=== PATIENT | female | born 1985 | race Caucasian/White ===

== ENCOUNTER 2016-07-05 19:00 | Emergency (ER) | payer OTHER ==
--- NOTE | 2016-07-05 22:14 | ER Document Report ---
ED General - General Chief Complaint: Cough Stated Complaint: COUGH Mode of Arrival: Ambulatory Information source: Patient Notes: Patient is a 31 yo FM who presents with cough, nasal congestion, and ear pain for the past 2 weeks. She states she has had fever but has not taken her temperature and chills. She has tried OTC medications without relief. Denies wheezing, nausea, vomiting or diarrhea. She is a smoker. TRAVEL OUTSIDE OF THE [place] IN LAST 30 DAYS: No - Related Data Allergies/Adverse Reactions: No Known Allergies Allergy (Unverified 07/05/16 19:10) Past Medical History - General Information source: Patient - Social History Smoking Status: Current Every Day Smoker Chew tobacco use (# tins/day): No Frequency of alcohol use: None Drug Abuse: None Family History: Reviewed & Not Pertinent Patient has suicidal ideation: No Patient has homicidal ideation: No Review of Systems - Review of Systems Constitutional: See HPI Respiratory: See HPI Physical Exam - Vital signs Vitals: Temp Pulse Resp BP Pulse Ox 97.6 F 109 H 20 140/91 H 100 07/05/16 19:10 07/05/16 19:10 07/05/16 19:10 07/05/16 19:10 07/05/16 19:10 - Notes Notes: PHYSICAL EXAM: CONSTITUTIONAL: Alert and oriented, well-appearing and in no acute distress. HENT: Normocephalic, atraumatic. Ear canals erythematous but no foreign body, TMs pearly javed with good bony landmarks. Nares clear without erythema, septal hematoma or deviation, airway patent. Oropharynx erythematous without tonsilar exudate or malocclusion. Trachea midline. Uvula midline. Moist mucous membranes. EYES: Pupils equal round and reactive to light, EOM intact. Sclera anicteric, conjunctiva are normal. No entrapment. NECK: supple without lymphadenopathy. HEART: Regular rate and rhythm without murmurs. LUNGS: CTAB and equal. No wheezes, rales or rhonchi. SKIN: Warm and dry. Normal turgor. No rashes or lesions noted. Course - Re-evaluation Re-evalutation: 07/05/16 22:24 Patient seen and examined. Non-toxic in appearance, Mildly tachycardic vital signs from triage but WNL on exam. Appears comfortable, no respiratory distress. Speaking in full sentences without difficulty. Lungs CTAB. I feel this is viral in etiology but due to duration of symptoms will treat empirically with abx. At this time, I do not feel imaging is warranted due to lungs CTAB. Discharged home in stable condition, supportive care treatments discussed, follow-up with PMD. - Vital Signs Vital signs: Temp Pulse Resp BP Pulse Ox 97.6 F 109 H 20 140/91 H 100 07/05/16 19:10 07/05/16 19:10 07/05/16 19:10 07/05/16 19:10 07/05/16 19:10 Discharge - Discharge Clinical Impression: Bronchitis Upper respiratory infection Qualifiers: URI type: acute nasopharyngitis (common cold) Qualified Code(s): J00 - Acute nasopharyngitis [common cold] Condition: Stable Disposition: HOME, SELF-CARE Instructions: Upper Respiratory Illness ([facility]), Viral Syndrome ([facility]) Additional Instructions: BRONCHITIS: You have acute bronchitis. This disease is an infection or inflammation of the air passageways in your lungs. Symptoms usually include cough, low grade fever, shortness of breath, and wheezing. The cough usually persists for a couple of weeks. Most cases of bronchitis get better without antibiotics. We prescribe antibiotics when we believe bacteria are damaging your airways, or if there's high risk the bronchitis will worsen into pneumonia. Increase your fluid intake. A cool mist humidifier may make your lungs more comfortable. An expectorant (cough medicine that loosens phlegm) can help. If you smoke, STOP!!! Recovery from bronchitis can be somewhat slow, but you should see improvement within a day or two. Repeated episodes of bronchitis may result in lung damage -- for example, chronic bronchitis, recurrent pneumonias, or emphysema. Call the doctor if you develop increasing fever, shortness of breath, chest pain, bloody sputum, or otherwise worsen. If you have not improved at all after several days, contact the physician. BRONCHITIS WITH BRONCHOSPASM (WHEEZING): You have bronchitis with bronchospasm (wheezing). Sometimes people develop wheezing with a chest cold. This occurs either because of an underlying tendency toward asthma or because the virus itself irritates the bronchial tubes. This irritation causes cough, shortness of breath, and wheezing. Emergency treatment of bronchospasm may include adrenaline shots or bronchodilator aerosol. You may feel lightheaded and have a rapid pulse for an hour or two. Rest and get plenty of fluids. At home, we'll treat you with a bronchodilator inhaler. Corticosteroids may be required for some patients. Until you recover, avoid chemical fumes, dusts, pollens, and exercising in very cold or dry air. If you smoke, stop now! Most cases of bronchitis get better without antibiotics. We prescribe antibiotics when we believe bacteria are damaging your airways, or if there's high risk the bronchitis will worsen into pneumonia. Increase your fluid intake. A cool mist humidifier may make your lungs more comfortable. An expectorant (cough medicine that loosens phlegm) can help. Repeated episodes of bronchitis and bronchospasm may result in lung damage -- for example, chronic bronchitis, recurrent pneumonias, or emphysema. If you develop a fever, increased wheezing, chest pain, or severe shortness of breath, you should contact the doctor immediately. COUGH-SUPPRESSANT & EXPECTORANT MEDICATION: You are to use a cough medication as needed for relief of symptoms. This medicine is a combination of an expectorant (to make the mucous thinner and more easily "coughed up") and a cough suppressant (to reduce the frequency of coughing). The cough-suppressant medicine is related to narcotics. You may experience mild nausea and sleepiness. Some patients who are very sensitive to narcotics may have stomach pain from this medicine. Taking the medicine with food reduces these side effects. Do not drive or work with machinery until you know how this medicine affects you. The expectorant should have no side effects. Iodine-containing expectorants (such as organidin) should not be taken by persons with active thyroid disease unless approved by your doctor. Call the doctor if you develop shortness of breath, hives, rash, itching, lightheadedness, or severe nausea and vomiting. INHALED BRONCHODILATORS: You have received a treatment of and/or prescription for an inhaled bronchodilator -- a medication which stimulates the airways in the lung to dilate. This improves the flow of air in asthma, bronchitis, and emphysema. These medicines have some similarity to adrenaline, and can cause similar side effects: shakiness, racing heart, and a sense of nervousness. These side effects decrease with time. Contact your doctor if these side effects are severe. Do not over-use the medicine. Too-frequent use of the inhaler may make it ineffective. Call your doctor if the inhaler is not controlling your symptoms at the prescribed doses. STEROID MEDICATION: You have been given an injection of or oral medicine of the cortisone/ steroid class. This medication is used to control inflammation or allergy. Manfred t is usually only given for a short period of time, until the acute process subsides. There are usually no side effects from short-term use of cortisone-like medications. Some persons feel an increased sense of well-being and are not sleepy at bedtime. Long-term use of cortisone medications is best avoided, unless required for a severe condition. If your condition does not remit, or relapses after the course of corticosteroid medication, you should consult your physician. ANTIBIOTIC THERAPY: You have been given an antibiotic prescription. It's important that you take all the medication, unless instructed otherwise by your physician. Failure to complete the entire course can result in relapse of your condition. Common side effects of antibiotics include nausea, intestinal cramping, or diarrhea. Women may develop vaginal yeast infections, and babies can get yeast (thrush) in the mouth following the use of antibiotics. Contact your physician if you develop significant side effects from this medication. Allergy to this antibiotic can result in hives, wheezing, faintness, or itching. If symptoms of allergy occur, stop the medication and call your doctor. AZITHROMYCIN: Azithromycin (Zithromax) is a broad spectrum antibiotic in the same class as erythromycin. It can treat a variety of bacterial infections, but is most frequently used for respiratory infections. Azithromycin is extremely long-lasting. It accumulates in body tissues and continues to kill bacteria for many days. In order to improve absorption, Azithromycin should be taken at least one hour before or two hours after a meal. It does not have the same strong tendency to upset the stomach as erythromycin and is usually very well tolerated. Patients who have had a rash or other true allergic reactions to erythromycin should not take this medication. Call if you develop gastrointestinal distress, severe diarrhea, rash, hives, itching, or shortness of breath. USE OF ACETAMINOPHEN (Tylenol): Acetaminophen may be taken for pain relief or fever control. It's much safer than aspirin, offering a wider range of "safe" dosages. It is safe during . Some brand names are Tylenol, Panadol, Datril, Anacin 3, Tempra, and Liquiprin. Acetaminophen can be repeated every four hours. The following are maximum recommended dosages: >89 pounds or adults 650 mg to 900 mg Acetaminophen can be repeated every four hours. Maximum dose not to exceed 4000 mg a day. SMOKING: If you smoke, you should stop smoking. The tar and chemicals in cigarette smoke are harmful. Smoking has been shown to cause: emphysema chronic bronchitis lung cancer mouth and throat cancer stomach and pancreas cancer premature aging defects In addition, smoking increases ear and lung infections in children of smokers. FOLLOW-UP CARE: If you have been referred to a physician for follow-up care, call the physician s office for an appointment as you were instructed or within the next two days. If you experience worsening or a significant change in your symptoms, notify the physician immediately or return to the Emergency Department at any time for re-evaluation. Prescriptions: Benzonatate [Tessalon Perle 100 mg Capsule] 100 mg PO Q8HP PRN #20 cap PRN Reason: Albuterol Sulfate [Proair HFA Inhalation Aerosol 8.5 gm MDI] 2 puff IH Q4H PRN # 1 mdi PRN Reason: Azithromycin [Zithromax 250 mg Tablet] 250 mg PO ASDIR PRN #6 tablet PRN Reason: Prednisone [Deltasone 20 mg Tablet] 3 tab PO DAILY 5 Days
[2016-07-06 01:03] VITALS: BP 131/74
== END 2016-07-05 23:50 | disposition home or self-care (01) ==
LOC: ER 19:00
DX: J40 Bronchitis, not specified as acute or chronic (principal); J00 Acute nasopharyngitis [common cold]; R05 Cough; R09.81 Nasal congestion; H92.09 Otalgia, unspecified ear; F17.210 Nicotine dependence, cigarettes, uncomplicated
CPT/HCPCS: 99283

== ENCOUNTER 2016-12-13 22:03 | Inpatient (IN) | payer OTHER ==
[2016-12-13] MEDS ORDERED: NORMAL SALINE 250 ML IV PRN ×2 (22:06)
[2016-12-13] MEDS ORDERED: ONDANSETRON HCL INJ/PF 4 MG/2 ML SDV IV PRN (22:06)
[2016-12-13 22:36] LABS: ABSOLUTE BASOPHILS # (AUTO) 0.1 10^3/uL (0.0-0.2); ABSOLUTE EOSINOPHILS # (AUTO) 0.1 10^3/uL (0.0-0.6); ABSOLUTE LYMPHOCYTES (AUTO) 2.3 10^3/uL (0.5-4.7); ABSOLUTE MONOCYTES (AUTO) 0.7 10^3/uL (0.1-1.4); ABSOLUTE NEUT (AUTO) 7.5 10^3/uL (1.7-8.2); BASOPHILS % (AUTO) 0.6 % (0-2); EOSINOPHILS % (AUTO) 1.1 % (0-6); HEMATOCRIT 18.3 % (36.0-47.0); HGB HCT DIFFERENCE -2.4; LYMPHOCYTES % (AUTO) 21.2 % (13-45); MEAN CORPUSCULAR HEMOGLOBIN 18.5 pg (27.0-33.4); MONOCYTES % (AUTO) 6.4 % (3-13); RED BLOOD COUNT 2.86 10^6/uL (3.72-5.28); RED CELL DISTRIBUTION WIDTH 19.6 % (11.5-14.0); SEGMENTED NEUTROPHILS % (AUTO) 70.7 % (42-78); WHITE BLOOD COUNT 10.6 10^3/uL (4.0-10.5)
[2016-12-13] MEDS ORDERED: IRON POLYSACCHARIDES COMPLEX 150 MG CAPSULE PO ONE (22:45)
[2016-12-13 22:57] LABS: ANISOCYTOSIS 2+; MICROCYTOSIS 3+; OVALOCYTES SLIGHT; POIKILOCYTOSIS SLIGHT; POLYCHROMASIA SLIGHT; ROULEAUX SLIGHT
[2016-12-13 22:58] LABS: MEAN CORPUSCULAR VOLUME 64 fl (80-97)
[2016-12-13 23:01] LABS: ANION GAP 13 (5-19); BLOOD UREA NITROGEN 12 mg/dL (7-20); CALCIUM 8.8 mg/dL (8.4-10.2); CARBON DIOXIDE 24 mmol/L (22-30); CHLORIDE 104 mmol/L (98-107); CREATININE RESULT 0.64 mg/dL (0.52-1.25); GLUCOSE 113 mg/dL (75-110); HEMOGLOBIN 5.3 g/dL (12.0-15.5); POTASSIUM 4.2 mmol/L (3.6-5.0); SODIUM 140.5 mmol/L (137-145)
[2016-12-13 23:39] LABS: FERRITIN 4.02 ng/mL (6.2-137.0)
--- NOTE | 2016-12-13 23:49 | PDOC H&P ---
History of Present Illness Admission Date/PCP: 12/13/16 22:03 Patient complains of: Generalized weakness and fatigue History of Present Illness: MYAA DE LA FUENTE is a 31 year old female with a past medical history of Depression and a remote history of iron deficiency anemia who has been in her usual state of health until approximately a week ago noting excessive fatigue and generalized weakness prompting her to seek evaluation with primary care Dr. Jarvis Urbina of [facility]. She is found to have a hemoglobin of 5 prompting a request for direct admission. She is accepted to the medical floor she admits palpitations no chest pain or shortness of breath denying nausea or vomiting dark or pink urine black stools or diarrhea. She also denies excessive frequency of menses or menorrhagia. She otherwise is well. Past Medical History Cardiac Medical History: Reports: Hypertension - only during Denies: Congestive Heart Failure, Myocardial Infarction Pulmonary Medical History: Denies: Asthma, Bronchitis, Chronic Obstructive Pulmonary Disease (COPD), Pneumonia, Tuberculosis Neurological Medical History: Denies: Seizures Renal/ Medical History: Denies: End Stage Renal Disease GI Medical History: Reports: Gastroesophageal Reflux Disease Denies: Cirrhosis Musculoskeltal Medical History: Denies: Arthritis Psychiatric Medical History: Reports: Depression Denies: Bipolar Disorder Hematology: Reports: Anemia Denies: Bleeding Tendencies Social History Information Source: Patient Lives with: Family Smoking Status: Current Every Day Smoker Cigarettes Packs Per Day: 0.3 Drugs: None - Advance Directive Resuscitation Status: Full Code Family History Family History: Hypertension, Other - No bleeding disorder colon cancer Parental Family History Reviewed: Yes Children Family History Reviewed: Yes Sibling(s) Family History Reviewed.: Yes Medication/Allergy Home Medications: Albuterol Sulfate [Proair HFA Inhalation Aerosol 8.5 gm MDI] 2 puff IH Q4H PRN # 1 mdi 07/05/16 Azithromycin [Zithromax 250 mg Tablet] 250 mg PO ASDIR PRN #6 tablet 07/05/16 Benzonatate [Tessalon Perle 100 mg Capsule] 100 mg PO Q8HP PRN #20 cap 07/05/16 Prednisone [Deltasone 20 mg Tablet] 3 tab PO DAILY 5 Days 07/05/16 Allergies/Adverse Reactions: No Known Allergies Allergy (Unverified 07/05/16 19:10) Review of Systems Constitutional: PRESENT: fatigue, weakness. ABSENT: anorexia, chills, fever(s) , headache(s), night sweats Eyes: ABSENT: visual disturbances Ears: ABSENT: hearing changes Cardiovascular: ABSENT: chest pain, dyspnea on exertion, edema, orthropnea, palpitations Respiratory: ABSENT: cough, hemoptysis Gastrointestinal: ABSENT: abdominal pain, constipation, diarrhea, hematemesis, hematochezia, nausea, vomiting Genitourinary: ABSENT: dysuria, hematuria Musculoskeletal: ABSENT: joint swelling Integumentary: ABSENT: rash, wounds Neurological: ABSENT: abnormal gait, abnormal speech, confusion, dizziness, focal weakness, syncope Psychiatric: ABSENT: anxiety, depression, homidical ideation, suicidal ideation Endocrine: ABSENT: cold intolerance, heat intolerance, polydipsia, polyuria Hematologic/Lymphatic: ABSENT: easy bleeding, easy bruising Physical Exam Vital Signs: Temp Pulse Resp BP Pulse Ox 98.1 F 110 H 17 133/77 H 100 12/13/16 22:23 12/13/16 22:23 12/13/16 22:23 12/13/16 22:23 12/13/16 22:23 Intake & Output 12/12/16 12/13/16 12/14/16 11:59 11:59 11:59 Weight 117.11 kg General appearance: PRESENT: no acute distress, cooperative, morbidly obese, well-developed, well-nourished Head exam: PRESENT: atraumatic, normocephalic Eye exam: PRESENT: conjunctiva pale, EOMI, PERRLA. ABSENT: scleral icterus Ear exam: PRESENT: normal external ear exam Mouth exam: PRESENT: moist, tongue midline Neck exam: ABSENT: carotid bruit, JVD, lymphadenopathy, thyromegaly Respiratory exam: PRESENT: clear to auscultation armand. ABSENT: rales, rhonchi, wheezes Cardiovascular exam: PRESENT: RRR. ABSENT: diastolic murmur, rubs, systolic murmur Pulses: PRESENT: normal dorsalis pedis pul Vascular exam: PRESENT: normal capillary refill GI/Abdominal exam: PRESENT: normal bowel sounds, soft. ABSENT: distended, guarding, mass, organolmegaly, rebound, tenderness Rectal exam: PRESENT: deferred Extremities exam: PRESENT: full ROM. ABSENT: calf tenderness, clubbing, pedal edema Neurological exam: PRESENT: alert Psychiatric exam: PRESENT: appropriate affect, normal mood. ABSENT: homicidal ideation, suicidal ideation Skin exam: PRESENT: dry, intact, warm. ABSENT: cyanosis, rash Results Laboratory Results: 12/13/16 22:25 12/13/16 12/13/16 22:25 22:25 WBC 10.6 H RBC 2.86 L Hgb 5.3 L Hct 18.3 L MCV 64 L MCH 18.5 L MCHC 29.0 L RDW 19.6 H Plt Count 496 H Seg Neutrophils % 70.7 Lymphocytes % 21.2 Monocytes % 6.4 Eosinophils % 1.1 Basophils % 0.6 Absolute Neutrophils 7.5 Absolute Lymphocytes 2.3 Absolute Monocytes 0.7 Absolute Eosinophils 0.1 Absolute Basophils 0.1 Retic Count (auto) 5.64 H Absolute Retic 0.162 H Blood Type O NEGATIVE Antibody Screen NEGATIVE Assessment & Plan - Diagnosis (1) Iron deficiency anemia Is this a current diagnosis for this admission?: YesPlan: By history appears to be somewhat chronic and only now symptomatic. Anemia studies pending the microcytic consistent with history, iron orally ordered 2 units of packed red blood cells ordered follow-up posttransfusion CBC. (2) Morbid obesity with BMI of 40.0-44.9, adult Is this a current diagnosis for this admission?: YesPlan: We will order a TSH and otherwise defer to outpatient management. - Time Time Spent: 30 to 50 Minutes
[2016-12-13 23:59] LABS: APPEARANCE,URINE SLIGHTLY-CLOUDY; BILIRUBIN,URINE NEGATIVE (NEGATIVE); GLUCOSE, URINE NEGATIVE (NEGATIVE); KETONES,URINE NEGATIVE (NEGATIVE); LEUKOCYTE ESTERASE,URINE NEGATIVE (NEGATIVE); NITRITE,URINE NEGATIVE (NEGATIVE); PROTEIN,URINE NEGATIVE (NEGATIVE); URINE SPECIFIC GRAVITY 1.015; UROBILINOGEN,URINE NEGATIVE mg/dL (<2.0)
[2016-12-14 05:01] LABS: ABSOLUTE BASOPHILS # (AUTO) 0.1 10^3/uL (0.0-0.2); ABSOLUTE EOSINOPHILS # (AUTO) 0.2 10^3/uL (0.0-0.6); ABSOLUTE LYMPHOCYTES (AUTO) 2.2 10^3/uL (0.5-4.7); ABSOLUTE MONOCYTES (AUTO) 0.5 10^3/uL (0.1-1.4); ABSOLUTE NEUT (AUTO) 5.8 10^3/uL (1.7-8.2); BASOPHILS % (AUTO) 0.6 % (0-2); EOSINOPHILS % (AUTO) 1.9 % (0-6); HEMATOCRIT 19.4 % (36.0-47.0); HGB HCT DIFFERENCE -2.6; LYMPHOCYTES % (AUTO) 25.1 % (13-45); MEAN CORPUSCULAR HEMOGLOBIN 18.7 pg (27.0-33.4); MEAN CORPUSCULAR HGB CONC 28.8 g/dL (32.0-36.0); MEAN CORPUSCULAR VOLUME 65 fl (80-97); MONOCYTES % (AUTO) 5.9 % (3-13); RED BLOOD COUNT 2.98 10^6/uL (3.72-5.28); RED CELL DISTRIBUTION WIDTH 21.9 % (11.5-14.0); SEGMENTED NEUTROPHILS % (AUTO) 66.5 % (42-78); WHITE BLOOD COUNT 8.7 10^3/uL (4.0-10.5)
[2016-12-14 05:29] LABS: HEMOGLOBIN 5.6 g/dL (12.0-15.5)
[2016-12-14] MEDS ORDERED: HEPARIN SOD (PORCINE) 5,000 UNIT/ML 1 ML SYRINGE SUBCUT SCH (06:00)
[2016-12-14] MEDS: DOCUSATE SODIUM 100 MG CAPSULE PO SCH ×2 (10:43→18:28)
[2016-12-14] MEDS: IRON POLYSACCHARIDES COMPLEX 150 MG CAPSULE PO SCH (10:43)
[2016-12-14] MEDS: ACETAMINOPHEN 325 MG TABLET PO PRN ×2 (10:43→21:00)
[2016-12-14 11:27] LABS: HEMATOCRIT 22.8 % (36.0-47.0); HGB HCT DIFFERENCE -2.1; MEAN CORPUSCULAR HEMOGLOBIN 20.4 pg (27.0-33.4); MEAN CORPUSCULAR HGB CONC 30.3 g/dL (32.0-36.0); MEAN CORPUSCULAR VOLUME 68 fl (80-97); RED BLOOD COUNT 3.38 10^6/uL (3.72-5.28); RED CELL DISTRIBUTION WIDTH 25.1 % (11.5-14.0); WHITE BLOOD COUNT 8.4 10^3/uL (4.0-10.5)
[2016-12-14] MEDS: TRAMADOL HCL 50 MG TABLET PO PRN ×3 (11:54→20:59)
[2016-12-14 12:08] LABS: HEMOGLOBIN 6.9 g/dL (12.0-15.5)
[2016-12-14 12:13] LABS: PATH REVIEW PATHOLOGIST REVIEWED
[2016-12-14] MEDS ORDERED: NORMAL SALINE 250 ML IV PRN ×2 (13:07)
--- NOTE | 2016-12-14 13:33 | PROGRESS NOTE E ---
Progress Note NAME: MAYA DE LA FUENTE : 1985 AGE: 31Y DATE: 12/14/2016 ROOM: 415 SUBJECTIVE: The patient is lying in bed. She states that she still feels quite weak. She is dizzy with a headache. After much discussion with the patient, it appears that she has had ongoing symptoms of reflux and has never undergone endoscopy. The patient also states that she had what sounds to be thrombosed hemorrhoids a couple of months ago, which she did have to have cut. The patient denies any menorrhagia. Her last menstrual period was a week ago, which was only for 4 days and was by no means heavy. The patient does not voice any other concerns at this time. REVIEW OF SYSTEMS: Rest of review of systems negative. MEDICATIONS: Medications have been reviewed. OBJECTIVE: GENERAL: The patient is a 31-year-old female who is awake, alert, and oriented to person, place, time, and situation. She is verbal, conversational, ambulatory, does not appear to be in acute distress. VITAL SIGNS: Temperature is 98.6, pulse 88, respirations 16, blood pressure is 124/64, oxygen saturation is 100% on room air. SKIN: Warm and dry. No rash. She is not diaphoretic. HEENT: Pupils equal, round, and reactive to light and accommodation. Conjunctiva is pink. No JVP. CARDIOVASCULAR SYSTEM: Heart is regular. There is no murmur or rub. CHEST: Clear, symmetrical, unlabored. ABDOMEN: Soft, nontender, nondistended. BACK: No CVA tenderness or sacral edema. EXTREMITIES: No clubbing, cyanosis, edema. PSYCHIATRIC: Appropriate affect, pleasant mood. DIAGNOSTICS: Lab values are as follows: Hematology obtained on 12/14/2016: WBCs are 8.4, hemoglobin is 6.9, hematocrit is 22.8, platelet count is 441,000. Chemistry obtained on 12/13/2016: TSH is 1.48. IMPRESSION AND PLAN: 1. ACUTE BLOOD LOSS ANEMIA. The patient does appear to be iron deficient, but the patient is highly symptomatic. No evidence of overt swapna bleeding; however, the patient has had numerous GI complaints. Will once again transfuse since the patient's hemoglobin is still less than 7 and consult GI given the patient's positive guaiac and follow. 2. DEPRESSION. Will continue the patient's home medications. 3. DVT PROPHYLAXIS. The patient is ambulatory and has actually been up ambulating in the hallway. Will defer pharmacological prophylaxis given the patient's bleeding. DISPOSITION: The patient is a FULL CODE. Pending patient's symptomatology and diagnostic findings, will re-evaluate in the a.m. Time spent on this followup including assessment, plan, physical examination, patient education is 25 minutes. DICTATING PHYSICIAN: ZEYNEP GABRIEL NP [id number] PHY#: [id number] ID: [id number] JOB#: [id number] ACCT: [id number] cc: >
[2016-12-14] MEDS: VENLAFAXINE HCL 75 MG CAP.SR.24H PO SCH (20:59)
[2016-12-14] MEDS ORDERED: BISACODYL 5 MG TABEC PO ONE (21:00)
[2016-12-14 22:21] LABS: HEMOGLOBIN 8.8 g/dL (12.0-15.5); HGB HCT DIFFERENCE -2.6; MEAN CORPUSCULAR HEMOGLOBIN 22.2 pg (27.0-33.4); MEAN CORPUSCULAR HGB CONC 30.3 g/dL (32.0-36.0); RED BLOOD COUNT 3.96 10^6/uL (3.72-5.28); RED CELL DISTRIBUTION WIDTH 28.4 % (11.5-14.0); WHITE BLOOD COUNT 9.1 10^3/uL (4.0-10.5)
[2016-12-14 22:29] LABS: MEAN CORPUSCULAR VOLUME 73 fl (80-97)
[2016-12-15 05:35] LABS: HEMATOCRIT 27.2 % (36.0-47.0); HEMOGLOBIN 8.4 g/dL (12.0-15.5); MEAN CORPUSCULAR HEMOGLOBIN 22.4 pg (27.0-33.4); MEAN CORPUSCULAR VOLUME 72 fl (80-97); RED BLOOD COUNT 3.75 10^6/uL (3.72-5.28); RED CELL DISTRIBUTION WIDTH 28.4 % (11.5-14.0)
[2016-12-15] MEDS ORDERED: PEG 3350/NA SULF,BICARB,CL/KCL 4000 ML PO ONE (07:00)
[2016-12-15] MEDS: IRON POLYSACCHARIDES COMPLEX 150 MG CAPSULE PO SCH (10:17)
[2016-12-15] MEDS: ACETAMINOPHEN 325 MG TABLET PO PRN ×2 (11:06→19:37)
--- NOTE | 2016-12-15 13:44 | PROGRESS NOTE E ---
Progress Note NAME: MAYA DE LA FUENTE : 1985 AGE: 31Y DATE: 12/15/2016 ROOM: 415 SUBJECTIVE: The patient is currently out of bed at the bedside chair. She states she feels better today. The patient states that when prepping for a colonoscopy she had very dark stools overnight. The patient's hemoglobin did improve to 9.8 after 4 units of packed red blood cells. The patient was seen by Dr. Oconnor and is to undergo endoscopy today, and the patient does not voice any other concerns at this time. REVIEW OF SYSTEMS: Rest of review of systems negative. MEDICATIONS: Medications have been reviewed. OBJECTIVE: GENERAL: The patient is a 31-year-old female who is awake, alert. She is oriented to person, place, time, and situation. She is verbal, conversational, ambulatory, does not appear to be in any acute distress. VITAL SIGNS: Temperature is 98.4, pulse 85, respirations 19, blood pressure 141/93, oxygen saturation is 100% on room air. SKIN: Warm and dry. She is not diaphoretic. HEENT: Pupils equal, round, and reactive to light and accommodation. Conjunctiva is pink. No JVP. CARDIOVASCULAR SYSTEM: Heart is regular. There is no murmur or rub. CHEST: Clear, symmetrical, unlabored. ABDOMEN: Soft, nontender, nondistended. BACK: No CVA tenderness or sacral edema. EXTREMITIES: No clubbing, cyanosis, edema. PSYCHIATRIC: Appropriate affect, pleasant mood. DIAGNOSTICS: Lab values are as follows: Hematology obtained on 12/15/2016: WBCs are 8.0, hemoglobin is 10.4, hematocrit is 27.7, platelet count is 430,000. Chemistry obtained on 12/13/2016: TSH is 1.48. obtained on 12/14/2016: Stool for occult blood is positive. IMPRESSION AND PLAN: 1. ACUTE BLOOD LOSS ANEMIA. The patient does appear to be iron deficient. The patient was highly symptomatic. This does appear to have improved after 4 units of packed red blood cells. Currently awaiting endoscopic evaluation. Will follow. 2. DEPRESSION. Will continue the patient's home medication. 3. DVT PROPHYLAXIS. The patient has been ambulatory. Therefore, will defer any pharmacological prophylaxis, but will continue DC hose. DISPOSITION: The patient is a FULL CODE. Pending patient's symptomatology and diagnostic findings, will re-evaluate in the a.m. for possible discharge. Time spent on this followup including assessment, plan, physical examination, patient education is 25 minutes. DICTATING PHYSICIAN: ZEYNEP GABRIEL NP [id number] PHY#: [id number] ID: [id number] JOB#: [id number] ACCT: [id number] cc: > MTDD
[2016-12-15] MEDS ORDERED: NALOXONE HCL INJ/PF 0.4 MG/1 ML SDV ONE (17:20)
[2016-12-15] MEDS ORDERED: FLUMAZENIL INJ 0.5 MG/5 ML VIAL IV ONE (17:21)
[2016-12-15] MEDS ORDERED: EPINEPHRINE INJ 1 MG/10 ML DISP.SYRIN ONE (17:21)
[2016-12-15] MEDS ORDERED: GLUCAGON,HUMAN RECOMB 1 MG INJ ONE (17:21)
[2016-12-15] MEDS: MIDAZOLAM 2 MG/2 ML INJ ONE ×2 (18:20→18:28)
[2016-12-15] MEDS: FENTANYL CITRATE INJ/PF 100 MCG/2 ML AMPUL ONE ×2 (18:22→18:30)
--- NOTE | 2016-12-15 19:03 | PDOC CONSULTATION ---
Consultation Consult Date: 12/14/16 History of Present Illness Admission Date/PCP: 12/14/16 11:19 History of Present Illness: This is a 31-year-old patient was admitted with severe anemia with a hemoglobin of 5. She was sent to the hospital by her PMD. She has been feeling more tired and out of breath over the last few weeks. She has a chronic history of iron deficiency anemia and actually took iron supplements for a few months early in 2015. She has not had any menstrual period for a couple of years. She has a history of hemorrhoids with occasional rectal bleeding. She had a colonoscopy for these about a year ago and did show diverticulosis. Her hemorrhoids has been banded a couple of times. She denies abdominal pain, nausea, vomiting, black stools or weight loss. She does have reflux symptoms including heartburn frequently. She takes [id number] antacid. She has never had an EGD Past Medical History Cardiac Medical History: Reports: Hypertension - only during Denies: Congestive Heart Failure, Myocardial Infarction Pulmonary Medical History: Denies: Asthma, Bronchitis, Chronic Obstructive Pulmonary Disease (COPD), Pneumonia, Tuberculosis Neurological Medical History: Denies: Seizures Renal/ Medical History: Denies: End Stage Renal Disease GI Medical History: Reports: Gastroesophageal Reflux Disease Denies: Cirrhosis GI History Note: Diverticulosis, hemorrhoids Musculoskeltal Medical History: Denies: Arthritis Psychiatric Medical History: Reports: Depression Denies: Bipolar Disorder Hematology: Reports: Anemia Denies: Bleeding Tendencies Past Surgical History Past Surgical History: Colonoscopy January 2016 Past Surgical History: Denies: Hysterectomy Social History Lives with: Family Smoking Status: Current Every Day Smoker Cigarettes Packs Per Day: 0.3 Drugs: None - Advance Directive Resuscitation Status: Full Code Family History Family History: Hypertension, Other - No bleeding disorder colon cancer Parental Family History Reviewed: No Children Family History Reviewed: NA Sibling(s) Family History Reviewed.: NA Medication/Allergy Home Medications: Venlafaxine HCl [Venlafaxine HCl ER] 150 mg PO QHS 12/14/16 Allergies/Adverse Reactions: No Known Allergies Allergy (Unverified 07/05/16 19:10) Review of Systems All systems: reviewed and no additional remarkable complaints except as stated Physical Exam Vital Signs: Temp Pulse Resp BP Pulse Ox 98.6 F 88 14 105/55 L 98 12/15/16 16:00 12/15/16 18:55 12/15/16 18:55 12/15/16 18:55 12/15/16 18:55 Intake & Output 12/14/16 12/15/16 12/16/16 06:59 06:59 06:59 Intake Total 590 1680 480 Output Total 300 Balance 290 1680 480 Weight 117.11 kg 117.11 kg Exam: General: Patient is alert and looks well. She is obese HEENT: There is palor but no jaundice. PERRLA. Oropharynx normal Respiratory: No chest deformity. No respiratory distress. Chest wall palpitation was unremarkable. Breath sounds were normal Cardiovascular: Heart sounds 1 and 2 normal with no murmurs. Abdominal: Not distended. Soft and nontender. Liver and spleen not palpable. No ascites demonstrated. Bowel sounds active. Rectal examination was deferred. Extremities: No edema Neurological: Alert and oriented x4. Grossly nonfocal. Normal speech Skin: No significant rash Psychological: Normal affect Results Laboratory Results: 12/15/16 04:32 12/13/16 22:25 12/13/16 12/14/16 12/15/16 22:25 22:00 04:32 WBC 9.1 8.0 RBC 3.96 3.75 Hgb 8.8 L 8.4 L Hct 29.0 L 27.2 L MCV 73 L D 72 L MCH 22.2 L 22.4 L MCHC 30.3 L 31.0 L RDW 28.4 H 28.4 H Plt Count 410 430 Blood Type O NEGATIVE Antibody Screen NEGATIVE Assessment & Plan - Diagnosis (1) Iron deficiency anemia Is this a current diagnosis for this admission?: YesPlan: The etiology for her iron deficiency anemia is unclear. She only has rectal bleeding once in a while and has not had a menstrual period for many years. She has a history of iron deficiency anemia but has not been on supplement consistently. She will undergo an EGD and colonoscopy. If these are unremarkable the capsule endoscopy of small intestine will be performed as outpatient. She should be on a full dose iron supplement for the next 6-12 months (2) Gastroesophageal reflux disease Is this a current diagnosis for this admission?: YesPlan: EGD will evaluate for esophagitis (3) Rectal bleeding Is this a current diagnosis for this admission?: No (4) Hemorrhoids Is this a current diagnosis for this admission?: No
--- NOTE | 2016-12-15 19:06 | Operative Report ---
Operative Report DATE OF SURGERY: 12/15/16 Operative Report: Pre-op diagnosis: Iron deficiency anemia Post-op diagnosis: 1. Large hiatal hernia. 2. Grade a esophagitis 3. Pancolonic diverticulosis 4. Internal hemorrhoids Surgery: Upper endoscopy biopsy and Colonoscopy Medications: Versed 4mg, Fentanyl 100 mcg IV push Tissue removed: Antral biopsy Procedure: After informed consent obtained from patient, patient's pharynx was sprayed with Hurricane and conscious sedation was achieved. The upper endoscope was then inserted into the esophagus under direct vision and advanced into the stomach and further into the duodenum. Detailed examination of the duodenum, stomach and the esophagus was then performed. A digital rectal examination was performed and this was unremarkable. The colonoscope was inserted into the rectum and advanced to the cecum. The appendiceal orifice and the terminal ileum were both identified. The mucosa was examined into details as the colonoscope was slowly pulled out of the patient. The endoscope was retroflexed in the rectum. Patient tolerated the procedure well. Findings Esophagus: Small erosion with mild stenosis at the GE junction. Z line was at 30 cm with top of the gastric fold at 35-36 cm Stomach: 5-6 mm hiatal hernia Duodenum: Normal Terminal ileum: Normal Cecum: Normal Ascending colon: A few diverticula Transverse colon: A few diverticuli Descending colon: A few diverticula Sigmoid colon: Multiple diverticuli Rectum: Normal except for internal hemorrhoids Plan: Schedule capsule endoscopy as outpatient. Prevacid 20 mg daily OPERATION: .
[2016-12-15] MEDS: TRAMADOL HCL 50 MG TABLET PO PRN (19:38)
[2016-12-15] MEDS: VENLAFAXINE HCL 75 MG CAP.SR.24H PO SCH (21:17)
[2016-12-15] MEDS ORDERED: MAG HYDROX/AL HYDROX/SIMETH SUSP 30 ML UDCUP PO ONE (23:45)
[2016-12-16 06:49] LABS: HEMATOCRIT 27.1 % (36.0-47.0); HEMOGLOBIN 8.3 g/dL (12.0-15.5); HGB HCT DIFFERENCE -2.2; MEAN CORPUSCULAR HEMOGLOBIN 22.1 pg (27.0-33.4); MEAN CORPUSCULAR HGB CONC 30.6 g/dL (32.0-36.0); MEAN CORPUSCULAR VOLUME 72 fl (80-97); RED BLOOD COUNT 3.75 10^6/uL (3.72-5.28); RED CELL DISTRIBUTION WIDTH 29.1 % (11.5-14.0); WHITE BLOOD COUNT 8.7 10^3/uL (4.0-10.5)
[2016-12-16] MEDS ORDERED: LANSOPRAZOLE 30 MG TAB.RAP.DR PO SCH (08:00)
--- NOTE | 2016-12-16 08:47 | Physician Advisory Note ---
Physician Advisor ProgressNote .: Pursuant to the plan [facility], I have reviewed the medical record for this patient. Physician Advisor Statement: Please consider documentin. "AABL, possibly due to ____" 2. "Chronic nutritional [or chr blood loss?] Fe defic anemia" 3. "obesity w/BMI 44" Thanks! CK
[2016-12-16 09:02] VITALS: BP 125/72
[2016-12-16] MEDS: IRON POLYSACCHARIDES COMPLEX 150 MG CAPSULE PO SCH (09:36)
--- NOTE | 2016-12-16 16:53 | DISCHARGE SUMMARY E ---
Discharge Summary NAME: MAYA DE LA FUENTE : 1985 AGE: 31Y ADMITTED: 12/14/2016 DISCHARGED: 12/16/2016 CODE STATUS: FULL CODE. CONSULTING EMAIL MARKETING INTERN: ELIZABETH ENCARNACION M.D. PRIMARY CARE PROVIDER: [facility]. DISCHARGE DIAGNOSES: Includes: 1. Symptomatic iron deficiency anemia status post transfusion. 2. Gastroesophageal reflux disease. 3. Hiatal hernia. 4. Grade A esophagitis. 5. Santoro colonic diverticulosis. 6. Internal hemorrhoids. 7. Depression. DISCHARGE MEDICATIONS: Include: 1. Nexium 40 mg p.o. daily; 30 capsules, 0 refills. 2. Nu-Iron 150 mg p.o. daily; 30 capsules, 0 refills. To be consumed with vitamin C. 3. Effexor ER 150 mg p.o. q. hour of sleep. DIET: As tolerated. ACTIVITY: As tolerated. HISTORY OF PRESENT ILLNESS: The patient is a 31-year-old female with a past medical history of mild iron deficiency anemia as well as depression. The patient presented to the emergency department with a chief complaint of weakness, fatigue, and dizziness. The patient had been in his usual state of health until approximately a week prior to presentation, when she noted excessive fatigue and intermittent shortness of breath. The patient was seen by her primary care provider at [facility] and was found to have a hemoglobin of 5, which prompted a request for direct admission. The patient was accepted to the medical floor. The patient had freely admitted to palpitations, but no chest pain, excessive fatigue, malaise. The patient denied any menorrhagia, but did admit to dark stools, but at this time was attributed to her iron supplementation. Denied any hematemesis or hematochezia. The patient is known to have internal and external hemorrhoids and has had bleeding at times associated with that. HOSPITAL COURSE: The patient was admitted to continuous telemetry unit. The patient was hydrated as well as typed and crossed and was transfused a total of 4 units of packed red blood cells. The patient's hemoglobin did improve from 5.3 to 8.3. The patient's iron studies were suggestive of primary iron deficiency anemia and the patient did have a positive guaiac. She was seen and evaluated by Dr. Encarnacion with gastroenterology and the patient underwent EGD and colonoscopy with findings as noted above. Recommendations were made for PPI therapy. The patient currently is taking omeprazole 20 mg and has breakthrough symptoms at times. Therefore, dosage was increased to 40 mg and formulation was changed to Nexium. The patient is in agreeance to this plan and will follow up. The patient had complete resolution of her fatigue. DIAGNOSTIC DATA: Lab values are as follows: Hematology obtained on 12/16/2016: WBC's are 8.7; hemoglobin is 10.3; hematocrit is 27.1; platelet count is 347,000. Coagulation obtained on 12/13/2016: PT is 14.0, INR is 1.01. Chemistries obtained on 12/13/2016: Sodium is 140, potassium is 4.2, chloride is 104, carbon dioxide 24, BUN 12, creatinine is 0.64, glucose 113, calcium is 8.8. Iron is 16, TIBC is 471, percent saturation 3, ferritin is 4.2, B12 of 520, folate 19. TSH is 1.48. Urinalysis obtained on 12/13/2016: Color yellow, appearance is slightly cloudy, pH of 6.0, specific gravity is 1.015, protein negative, glucose negative, ketones negative, occult blood negative, nitrite negative, bilirubin negative, urobilinogen is negative, leukocyte esterase is negative, WBC's , RBC's 1, cast 1, and hCG is negative. Other body sources obtained on 12/14/2016: Stool for occult blood is positive. PHYSICAL EXAMINATION: GENERAL: On examination, the patient is a well-developed, well-nourished 31-year-old female who is awake, alert, and oriented to person, place, and situation. She is verbal and conversational and does not appear to be in any acute distress. VITAL SIGNS: Temperature is 98.9, pulse 83, respirations 19, blood pressure is 125/72, oxygen saturation is 99% on room air. SKIN: Warm and dry. No rash. She is not diaphoretic. HEENT: Pupils equal, round, and reactive to light and accommodation. Conjunctivae still pale. NECK: No JVD. CARDIOVASCULAR SYSTEM: Heart is regular. There is no murmur or rub. CHEST: Clear, symmetrical, unlabored. ABDOMEN: Soft, nontender, and nondistended. BACK: No CVA tenderness or sacral edema. EXTREMITIES: No clubbing, cyanosis, or edema. PSYCHIATRIC: Appropriate affect, pleasant mood. DISCHARGE PLANNING: The patient is advised to follow up with Dr. Encarnacion within 1-2 weeks for hospital followup. TIME: Time spent on this discharge, including assessment, plan, physical examination, patient education, and speciality collaboration was 25 minutes. DICTATING PHYSICIAN: ZEYNEP GABRIEL NP [id number] PHY#: [id number] ID: [id number] JOB#: [id number] ACCT: [id number] cc:Kari KNIGHT NP > MTDD
== END 2016-12-16 12:15 | disposition home or self-care (01) | DRG 812 ==
LOC: 4N 22:03 → INTOOBSV 22:03 → OBSVTOIN 12-14 11:19
PROVIDERS: ADMIT Internal Medicine; ATTEND Internal Medicine
PROC: 30233N1 Transfusion of Nonautologous Red Blood Cells into Peripheral Vein, Percutaneous Approach (ICD-10-PCS; principal; 2016-12-14)
PROC: 0DB68ZX Excision of Stomach, Via Natural or Artificial Opening Endoscopic, Diagnostic (ICD-10-PCS; 2016-12-15 18:00)
DX: D50.9 Iron deficiency anemia, unspecified (principal); Z68.41 Body mass index [BMI] 40.0-44.9, adult; K21.9 Gastro-esophageal reflux disease without esophagitis; K44.9 Diaphragmatic hernia without obstruction or gangrene; K20.8 Other esophagitis; K57.30 Diverticulosis of large intestine without perforation or abscess without bleeding; K64.8 Other hemorrhoids; R19.5 Other fecal abnormalities; F32.9 Major depressive disorder, single episode, unspecified; F17.210 Nicotine dependence, cigarettes, uncomplicated; E66.01 Morbid (severe) obesity due to excess calories; Z82.49 Family history of ischemic heart disease and other diseases of the circulatory system
CPT/HCPCS: 36415; 36430; 43239; 45378; 80048; 81001; 81025; 82272; 82607; 82728; 82746; 83540; 83550; 84443; 85025; 85027; 85045; 85610; 86850; 86900; 86901; 86920; 88305; 88342; G0378; G0379; J0171; J1610; J1644; J2250; J2310; J2405; J3010; J3490; P9016

== ENCOUNTER → 2017-02-17 | Outpatient (CLI) | payer OTHER ==
[2017-02-17 13:49] LABS: HEMATOCRIT 39.7 % (36.0-47.0); HEMOGLOBIN 13.6 g/dL (12.0-15.5); HGB HCT DIFFERENCE 1.1; MEAN CORPUSCULAR HEMOGLOBIN 27.6 pg (27.0-33.4); MEAN CORPUSCULAR HGB CONC 34.1 g/dL (32.0-36.0); MEAN CORPUSCULAR VOLUME 81 fl (80-97); RED BLOOD COUNT 4.92 10^6/uL (3.72-5.28); RED CELL DISTRIBUTION WIDTH 25.3 % (11.5-14.0); WHITE BLOOD COUNT 6.5 10^3/uL (4.0-10.5)
== END ==
LOC: OD 12:48
PROVIDERS: ATTEND Physician Assistant Surgical
DX: D50.0 Iron deficiency anemia secondary to blood loss (chronic) (principal)
CPT/HCPCS: 36415; 82728; 83540; 83550; 85027

== ENCOUNTER 2017-05-14 12:05 | Emergency (ER) | payer OTHER ==
[2017-05-14] MEDS ORDERED: CEFTRIAXONE 1 GM/D5W RTU 1 GM/50 ML RTUPB IV ONE (12:14)
--- NOTE | 2017-05-14 12:20 | ER Document Report ---
ED Medical Screen (RME) - General Chief Complaint: Nausea/Vomiting/Diarrhea Stated Complaint: LOWER BACK PAIN Time Seen by Provider: 05/14/17 12:12 Mode of Arrival: Ambulatory Information source: Patient Notes: 32-year-old female presents with vomiting duration suprapubic pain bilateral flank pain foul-smelling urine. Patient admits night sweats I have greeted and performed a rapid initial assessment of this patient. A comprehensive ED assessment and evaluation of the patient, analysis of test results and completion of the medical decision making process will be conducted by additional ED providers. PHYSICAL EXAMINATION: GENERAL: Well-appearing, well-nourished and in no acute distress. HEAD: Atraumatic, normocephalic. EYES: Pupils equal round extraocular movements intact, conjunctiva are normal. ENT: Nares patent NECK: Normal range of motion LUNGS: No respiratory distress Musculoskeletal: Normal range of motion bilateral flank pain NEUROLOGICAL: Normal speech, normal gait. PSYCH: Normal mood, normal affect. SKIN: Warm, Dry, normal turgor, no rashes or lesions noted. TRAVEL OUTSIDE OF THE [place] IN LAST 30 DAYS: No - Related Data Allergies/Adverse Reactions: No Known Allergies Allergy (Verified 05/14/17 12:09) Past Medical History - Past Medical History Cardiac Medical History: Reports: Hx Hypertension - only during Denies: Hx Congestive Heart Failure, Hx Heart Attack Pulmonary Medical History: Denies: Hx Asthma, Hx Bronchitis, Hx COPD, Hx Pneumonia, Hx Tuberculosis Neurological Medical History: Denies: Hx Seizures Renal/ Medical History: Denies: Hx End Stage Renal Disease, Hx Kidney Stones, Hx Peritoneal Dialysis GI Medical History: Reports: Hx Gastroesophageal Reflux Disease. Denies: Hx Cirrhosis, Hx Ulcer Musculoskeltal Medical History: Denies Hx Arthritis, Denies Hx Multiple Sclerosis Psychiatric Medical History: Reports: Hx Depression Denies: Hx Bipolar Disorder, Hx Schizophrenia Past Surgical History: Denies: Hx Hysterectomy - Immunizations Hx Diphtheria, Pertussis, Tetanus Vaccination: Yes Physical Exam - Vital signs Vitals: Temp Pulse Resp BP Pulse Ox 98.8 F 128 H 24 H 128/96 H 97 05/14/17 12:09 05/14/17 12:09 05/14/17 12:09 05/14/17 12:09 05/14/17 12:09 Course - Vital Signs Vital signs: Temp Pulse Resp BP Pulse Ox 98.8 F 128 H 24 H 128/96 H 97 05/14/17 12:09 05/14/17 12:09 05/14/17 12:09 05/14/17 12:09 05/14/17 12:09
[2017-05-14] MEDS ORDERED: ONDANSETRON HCL INJ/PF 4 MG/2 ML SDV IV ONE (12:41)
[2017-05-14] MEDS ORDERED: KETOROLAC TROMETHAMINE INJ/PF 30 MG/1 ML SDV IV ONE (12:41)
[2017-05-14 13:09] LABS: APPEARANCE,URINE CLOUDY; BILIRUBIN,URINE NEGATIVE (NEGATIVE); GLUCOSE, URINE NEGATIVE (NEGATIVE); KETONES,URINE NEGATIVE (NEGATIVE); LEUKOCYTE ESTERASE,URINE NEGATIVE (NEGATIVE); NITRITE,URINE NEGATIVE (NEGATIVE); PROTEIN,URINE 30 mg/dL (NEGATIVE); UROBILINOGEN,URINE NEGATIVE mg/dL (<2.0)
[2017-05-14] MEDS: NORMAL SALINE 1000 ML 1,000 ML IV PRN ×2 (13:16→13:17)
--- NOTE | 2017-05-14 13:26 | ER Document Report ---
ED GI/ - General Mode of Arrival: Ambulatory Information source: Patient TRAVEL OUTSIDE OF THE [place] IN LAST 30 DAYS: No <SELENE MURGUIA - Last Filed: 05/14/17 13:27> <ELIO OLGUIN - Last Filed: 05/14/17 15:56> - General Chief Complaint: Nausea/Vomiting/Diarrhea Stated Complaint: LOWER BACK PAIN Time Seen by Provider: 05/14/17 12:12 Notes: Patient is a 32 year old female that presents to the emergency department today with complaints of hot sweats for the last week and low back pain. Patient states that she has had associated vomiting but denies any URI including fevers , cough, or congestion. Patient states the low back pain is "constant". (SELENE MURGUIA) - Related Data Allergies/Adverse Reactions: No Known Allergies Allergy (Verified 05/14/17 13:35) Past Medical History - General Information source: Patient - Social History Smoking Status: Current Every Day Smoker Cigarette use (# per day): Yes - 5 a day Frequency of alcohol use: None Drug Abuse: None Lives with: Family Family History: Reviewed & Not Pertinent, Hypertension, Other - No bleeding disorder colon cancer Patient has suicidal ideation: No Patient has homicidal ideation: No - Past Medical History Cardiac Medical History: Reports: Hx Hypertension - only during GI Medical History: Reports: Hx Gastroesophageal Reflux Disease Psychiatric Medical History: Reports: Hx Depression Surgical Hx: Negative - Immunizations Hx Diphtheria, Pertussis, Tetanus Vaccination: Yes <SELENE MURGUIA - Last Filed: 05/14/17 13:27> <ELIO OLGUIN - Last Filed: 05/14/17 15:56> - Medical History Notes: Hx of iron deficiency anemia thought to be from malabsorption after negative workups. (SELENE MURGUIA) Review of Systems - Review of Systems Constitutional: denies: Fever EENT: denies: Throat pain Cardiovascular: No symptoms reported Respiratory: denies: Cough Gastrointestinal: See HPI, Nausea, Vomiting Genitourinary: No symptoms reported Female Genitourinary: No symptoms reported Musculoskeletal: See HPI, Back pain Skin: No symptoms reported Hematologic/Lymphatic: No symptoms reported Neurological/Psychological: No symptoms reported -: Yes All other systems reviewed and negative <SELENE MURGUIA - Last Filed: 05/14/17 13:27> - Vital signs Vitals: Temp Pulse Resp BP Pulse Ox 98.8 F 128 H 24 H 128/96 H 97 05/14/17 12:09 05/14/17 12:09 05/14/17 12:09 05/14/17 12:09 05/14/17 12:09 - Notes Notes: Physical Exam: General: Alert, appears well. HEENT: Normocephalic. Atraumatic. PERRL. Extraocular movements intact. Oropharynx clear. Neck: Supple. Non-tender. Respiratory: No respiratory distress. Clear and equal breath sounds bilaterally. Cardiovascular: Tachycardic, regular rhythm. Abdominal: Obese. Lower abdominal tenderness. No distension. Normal Bowel Sounds. Back: Pain with palpation of low back with light touch over lumbar musculature. No deformity or step off. Extremities: Moves all four extremities. Upper extremities: Normal inspection. Normal ROM. Lower extremities: Normal inspection. No edema. Normal ROM. Neurological: Normal cognition. AAOx4. Normal speech. Psychological: Normal affect. Normal Mood. Skin: Warm. Dry. Normal color. (SELENE MURGUIA) Course <SELENE MURGUIA - Last Filed: 05/14/17 13:27> - Laboratory Result Diagrams: 05/14/17 13:15 05/14/17 13:15 - Diagnostic Test Radiology reviewed: Image reviewed, Reports reviewed - CT scan abdomen pelvis shows a very large hiatal hernia with the majority of the stomach located within the thorax. <ELIO OLGUIN - Last Filed: 05/14/17 15:56> - Re-evaluation Re-evalutation: 05/14/17 15:33 Reevaluation after the patient had about 1 L of IV fluids, her heart rate is down to 110. CT scan without contrast was done showing a rather large hiatal hernia. Palpation of the abdomen at this time shows some epigastric tenderness. She does relate a history of frequent and severe heartburn. Endoscopy done in December of this year reported a 5-6 mm hiatal hernia, I wonder if this was a misprint and should have been centimeter. 05/14/17 15:52 After GI cocktail, the patient's epigastric tenderness is gone. She does feel much better. Her heart rate is down to about 105 with 2 L of IV fluids in. Her hemoglobin today is 16.4, I have reviewed her prior lab work and today's with the patient and recommend she stop taking the iron until she can follow-up with her doctor to discuss this. She should also follow-up with [facility] to discuss treatment options for her quite large hiatal hernia. (ELIO OLGUIN) - Vital Signs Vital signs: Temp Pulse Resp BP Pulse Ox 98.8 F 128 H 18 128/96 H 100 05/14/17 12:09 05/14/17 12:09 05/14/17 15:00 05/14/17 12:09 05/14/17 15:00 - Laboratory Laboratory results interpreted by me: 05/14/17 05/14/17 12:25 13:15 WBC 13.6 H Hgb 16.4 H Seg Neutrophils % 89.3 H Lymphocytes % 5.4 L Absolute Neutrophils 12.2 H Urine Protein 30 H Urine Ascorbic Acid 40 H Discharge <SELENE MURGUIA - Last Filed: 05/14/17 13:27> <ELIO OLGUIN - Last Filed: 05/14/17 15:56> - Discharge Clinical Impression: Viral syndrome, Myalgia, Night sweats, Hiatal hernia Condition: Stable Disposition: HOME, SELF-CARE Additional Instructions: Most of your symptoms of the night sweats, and low back pain are most likely due to a viral illness. There was no sign of urinary tract infection. Your imaging studies showed a quite large hiatal hernia with most of the stomach located within the thoracic cavity. Your hemoglobin was 16.4 today, you should stop taking the iron supplements until you can follow-up with your primary care provider. Your epigastric pain resolved with the GI cocktail suggesting this was most likely due to acid reflux causing the discomfort. You will be discharged with some medication for nausea for today. Drink small sips of cool clear liquids. Rest. Follow-up with your doctor Tuesday for recheck. Follow-up with [facility] to discuss your large hiatal hernia. RETURN TO THE EMERGENCY ROOM IF ANY NEW OR WORSENING SYMPTOMS. Referrals: MARTHA MCGOVERN MD [Primary Care Provider] - 05/16/17 [facility] [Provider Group] - Follow up in 3-5 days Scribe Attestation: 05/14/17 13:35 I personally performed the services described in the documentation, reviewed and edited the documentation which was dictated to the scribe in my presence, and it accurately records my words and actions. (ELIO OLGUIN) Scribe Documentation - Scribe Written by Chase:: Chase Ignacio, 05/14/2017 1326 acting as scribe for :: Edilia <SELENE MURGUIA - Last Filed: 05/14/17 13:27>
[2017-05-14 13:37] LABS: ABSOLUTE LYMPHOCYTES (AUTO) 0.7 10^3/uL (0.5-4.7); ABSOLUTE MONOCYTES (AUTO) 0.7 10^3/uL (0.1-1.4); ABSOLUTE NEUT (AUTO) 12.2 10^3/uL (1.7-8.2); BASOPHILS % (AUTO) 0.2 % (0-2); EOSINOPHILS % (AUTO) 0.2 % (0-6); HEMATOCRIT 46.7 % (36.0-47.0); HEMOGLOBIN 16.4 g/dL (12.0-15.5); HGB HCT DIFFERENCE 2.5; LYMPHOCYTES % (AUTO) 5.4 % (13-45); MEAN CORPUSCULAR HEMOGLOBIN 31.2 pg (27.0-33.4); MEAN CORPUSCULAR HGB CONC 35.1 g/dL (32.0-36.0); MEAN CORPUSCULAR VOLUME 89 fl (80-97); MONOCYTES % (AUTO) 4.9 % (3-13); RED BLOOD COUNT 5.25 10^6/uL (3.72-5.28); RED CELL DISTRIBUTION WIDTH 12.6 % (11.5-14.0); SEGMENTED NEUTROPHILS % (AUTO) 89.3 % (42-78); WHITE BLOOD COUNT 13.6 10^3/uL (4.0-10.5)
[2017-05-14 13:39] LABS: VENOUS BLOOD BASE EXCESS 2.4 mmol/L; VENOUS BLOOD PCO2 52.3 mmHg (35-63); VENOUS BLOOD PH 7.36 (7.30-7.42)
[2017-05-14 13:45] LABS: PROTHROMBIN TIME 13.5 SEC (11.4-15.4)
[2017-05-14 13:56] LABS: ALANINE AMINOTRANSFERASE 43 U/L (9-52); ALKALINE PHOSPHATASE 77 U/L (38-126); ANION GAP 16 (5-19); ASPARTATE AMINO TRANSFERASE 23 U/L (14-36); BILIRUBIN,DIRECT 0.4 mg/dL (0.0-0.4); BILIRUBIN,TOTAL 0.7 mg/dL (0.2-1.3); BLOOD UREA NITROGEN 9 mg/dL (7-20); CALCIUM 9.2 mg/dL (8.4-10.2); CARBON DIOXIDE 27 mmol/L (22-30); CHLORIDE 100 mmol/L (98-107); CREATININE RESULT 0.72 mg/dL (0.52-1.25); GLUCOSE 96 mg/dL (75-110); POTASSIUM 3.8 mmol/L (3.6-5.0); SODIUM 143.3 mmol/L (137-145); TOTAL PROTEIN 8.1 g/dL (6.3-8.2)
--- NOTE | 2017-05-14 14:32 | RADIOLOGY REPORT (SQ) ---
EXAM DESCRIPTION: CHEST SINGLE VIEW COMPLETED DATE/TIME: 05/14/2017 2:17 pm REASON FOR STUDY: NIGHT SWEATS COMPARISON: None. NUMBER OF VIEWS: One view. TECHNIQUE: Single frontal radiographic view of the chest acquired. LIMITATIONS: None. FINDINGS: LUNGS AND PLEURA: No opacities, masses or pneumothorax. No pleural effusion. MEDIASTINUM AND HILAR STRUCTURES: No masses. Contour normal. HEART AND VASCULAR STRUCTURES: Heart normal in size. Normal vasculature. BONES: No acute findings. HARDWARE: None in the chest. OTHER: No other significant finding. IMPRESSION: NO SIGNIFICANT RADIOGRAPHIC FINDING IN THE CHEST. TECHNICAL DOCUMENTATION: JOB ID: [id number] [employer]- All Rights Reserved
[2017-05-14] MEDS ORDERED: NICOTINE 21 MG/24 HR PATCH.TD24 TD ONE (14:47)
[2017-05-14] MEDS ORDERED: NICOTINE 14 MG/24 HR PATCH.TD24 TD ONE (14:48)
--- NOTE | 2017-05-14 15:20 | RADIOLOGY REPORT (SQ) ---
EXAM DESCRIPTION: CT LTD RENAL STONE PROTOCOL ON COMPLETED DATE/TIME: 05/14/2017 2:59 pm REASON FOR STUDY: N V, LBP, Abd pain, night sweats COMPARISON: None. TECHNIQUE: CT scan of the abdomen and pelvis performed without intravenous or oral contrast. Images reviewed with lung, soft tissue, and bone windows. Reconstructed coronal and sagittal MPR images revi ewed. All images stored on PACS. All CT scanners at this facility use dose modulation, iterative reconstruction, and/or weight based d osing when appropriate to reduce radiation dose to as low as reasonably achievable (ALARA). [facility]: Dose Right [facility]: CareDose [facility]: Dose Right [facility]: Teradose 4D [facility]: [employer] RADIATION DOSE: Up-to-date CT equipment and radiation dose reduction techniques were employed. CTDIv ol: 19.2 mGy. DLP: 1041 mGy-cm.mGy. LIMITATIONS: None. FINDINGS: LOWER CHEST: Lung bases clear. Majority of the stomach is intrathoracic, organo-axial vol vulus. NON-CONTRASTED LIVER, SPLEEN, ADRENALS: Liver is likely fatty. Spleen is normal. No adrenal mass. PANCREAS: No masses. No peripancreatic inflammatory changes. GALLBLADDER: No identified stones by CT criteria. No inflammatory changes to suggest cholecystitis. RIGHT KIDNEY AND URETER: No solid masses. No significant calcification. No hydronephrosis or hydroure ter. LEFT KIDNEY AND URETER: No solid masses. No significant calcification. No hydronephrosis or hydrouret er. AORTA AND RETROPERITONEUM: No aneurysm. No retroperitoneal masses or adenopathy. BOWEL AND PERITONEAL CAVITY: No obvious masses or inflammatory changes. No free fluid. APPENDIX: Normal. PELVIS, BLADDER, AND ABDOMINAL WALL:No abnormal masses. No free fluid. Bladder normal. BONES: No significant findings. OTHER: No other significant finding. IMPRESSION: 1. No acute or suspicious abdominopelvic abnormality. No evidence of urinary stones or obstruction. 2. Large hiatal hernia consistent with organo-axial volvulus. TECHNICAL DOCUMENTATION: JOB ID: [id number] Quality ID # [id number]: Final reports with documentation of one or more dose reduction techniques (e.g., Au tomated exposure control, adjustment of the mA and/or kV according to patient size, use of iterative reconstruction technique) 2010 [employer]- All Rights Reserved
[2017-05-14] MEDS ORDERED: LIDOCAINE 2% VISCOUS SOLN 20 ML UDCUP PO ONE (15:32)
[2017-05-14] MEDS ORDERED: MAG HYDROX/AL HYDROX/SIMETH SUSP 30 ML UDCUP PO ONE (15:32)
[2017-05-14] MEDS ORDERED: ONDANSETRON ODT 4 MG TAB (6 TAB/DSPK) PO PRN (15:56)
[2017-05-14 17:06] VITALS: BP 119/81
--- NOTE | 2017-05-14 21:11 | EKG REPORT ---
SEVERITY:- OTHERWISE NORMAL ECG - SINUS TACHYCARDIA : Confirmed by: Kamron Billy MD 14-May-2017 21:10:53
== END 2017-05-14 17:07 | disposition home or self-care (01) ==
LOC: ER 12:05
DX: B34.9 Viral infection, unspecified (principal); K44.9 Diaphragmatic hernia without obstruction or gangrene; R61 Generalized hyperhidrosis; R10.816 Epigastric abdominal tenderness; M54.5 Low back pain; M79.1 Myalgia; R11.2 Nausea with vomiting, unspecified; F17.210 Nicotine dependence, cigarettes, uncomplicated; Z87.19 Personal history of other diseases of the digestive system; R00.0 Tachycardia, unspecified
CPT/HCPCS: 93005; 99284; 96361; 96375; 96365; 36415; 87040; 87086; 82962; 85025; 85610; 81025; 80053; 81001; 82803; 83605; 71010; 76380; 93010; J3490; J1885; J2405; J7030; J0696

== ENCOUNTER → 2017-05-30 | Outpatient (CLI) | payer OTHER ==
--- NOTE | 2017-05-30 16:41 | RADIOLOGY REPORT (SQ) ---
EXAM DESCRIPTION: UGI SERIES COMPLETED DATE/TIME: 05/30/2017 10:24 am REASON FOR STUDY: DIAPHRAGMATIC HERNIA WITHOUT OBSTRUCTION OR GANGRENE K44.9 DIAPHRAGMATIC HERNIA W ITHOUT OBSTRUCTION OR GANGRENE K21.9 GASTRO-ESOPHAGEAL REFLUX DISEASE WITHOUT ESOPHAGITIS R10.13 EP IGASTRIC PAIN COMPARISON: CT abdomen pelvis 05/14/2017 TECHNIQUE: Under fluoroscopic guidance, patient ingested effervescent granules followed by thick and thin barium. Fluoroscopic spot images and routine radiographic images acquired and stored on PACS. 12 MM BARIUM TABLET GIVEN: Yes. No significant delay in passage. LIMITATIONS: None. FLUOROSCOPY TIME: FLUORO TIME: 1.7 minutes 17 digital images saved to PACS. FINDINGS: NEUROMUSCULAR COORDINATION OF SWALLOW: Normal. No aspiration. ESOPHAGEAL MOTILITY: Normal peristalsis. No esophageal spasm. ESOPHAGEAL MUCOSA: Normal mucosa without masses or ulceration. GASTRO-ESOPHAGEAL JUNCTION: Large hiatal hernia containing stomach fundus and gastric body. The antr um is below the hemidiaphragms. There is a Schatzki's ring at the GE junction which does not impede passage of the 12 mm barium tablet. Intermittent reflux throughout the study STOMACH: About 2/3 of the stomach is above the hemidiaphragms. Gastric antrum and pylorus below the hemidiaphragms. No delay in gastric emptying. GASTRIC OUTLET: No delay in emptying. Normal pylorus. DUODENAL BULB: Normal distention. No spasm or ulceration. DUODENUM: Mucosa normal. No extrinsic masses or malrotation. PROXIMAL SMALL BOWEL: Mucosa normal. No extrinsic masses or malrotation. NON-GI TRACT STRUCTURES: No significant finding. OTHER: No other significant finding. IMPRESSION: Large retrocardiac hiatal hernia containing about 2/3 of the stomach Distal esophageal mild Schatzki's ring. This did not impede passage of the 12 mm barium tablet. Intermittent gastroesophageal reflux COMMENT: Quality ID [id number]: Final reports for procedures using fluoroscopy that document radiation exp osure indices, or exposure time and number of fluorographic images (if radiation exposure indices are not available) TECHNICAL DOCUMENTATION: JOB ID: [id number] [employer]- All Rights Reserved
== END ==
LOC: RAD 09:24
PROVIDERS: ATTEND Surgery
DX: K44.9 Diaphragmatic hernia without obstruction or gangrene (principal); K21.9 Gastro-esophageal reflux disease without esophagitis; R10.13 Epigastric pain
CPT/HCPCS: 74247

== ENCOUNTER 2017-09-10 10:39 | Emergency (ER) | payer OTHER ==
[2017-09-10 11:00] VITALS: BP 145/95
--- NOTE | 2017-09-10 11:07 | ER Document Report ---
HPI - HPI Patient complains to provider of: sore throat Onset: Other Onset/Duration: Gradual Pain Level: 4 Context: 32-year-old smoker complaining of sore throat since with fever. Pain radiates into her right ear. She has been taking Motrin and Tylenol. Several coworkers were diagnosed with strep. She wants to have a strep test done. No cough. Associated Symptoms: None Exacerbated by: Other - Swallowing Relieved by: Denies Similar symptoms previously: Yes Recently seen / treated by doctor: No - ROS ROS below otherwise negative: Yes Systems Reviewed and Negative: Yes All other systems reviewed and negative - REPRODUCTIVE Reproductive: DENIES: : Past Medical History - General Information source: Patient - Social History Smoking Status: Current Every Day Smoker Frequency of alcohol use: None Drug Abuse: None Lives with: Family Family History: Reviewed & Not Pertinent, Hypertension, Other - No bleeding disorder colon cancer - Past Medical History Cardiac Medical History: Reports: Hx Hypertension - only during GI Medical History: Reports: Hx Gastroesophageal Reflux Disease Psychiatric Medical History: Reports: Hx Depression Surgical Hx: Negative - Immunizations Hx Diphtheria, Pertussis, Tetanus Vaccination: Yes Vertical Provider Document - CONSTITUTIONAL Agree With Documented VS: Yes Exam Limitations: No Limitations - INFECTION CONTROL TRAVEL OUTSIDE OF THE [place] IN LAST 30 DAYS: No - HEENT HEENT: Normocephalic, Pharyngeal Erythema - Bright red anterior pillars bilateral. negative: Conjuctival Injection, Tympanic Membrane Red, Tympanic Membrane Bulging - NECK Neck: Supple, Lymphadenopathy-Left - Anterior, Lymphadenopathy-Right - Anterior - RESPIRATORY Respiratory: Breath Sounds Normal, No Respiratory Distress O2 Sat by Pulse Oximetry: 96 - CARDIOVASCULAR Cardiovascular: Regular Rate, Regular Rhythm - NEURO Level of Consciousness: Awake, Alert - DERM Integumentary: Warm, Dry, No Rash Course - Re-evaluation Re-evalutation: 09/10/17 11:53 Rapid strep is positive - Vital Signs Vital signs: Temp Pulse Resp BP Pulse Ox 98.5 F 99 18 145/95 H 96 09/10/17 10:59 09/10/17 10:59 09/10/17 10:59 09/10/17 10:59 09/10/17 10:59 Discharge - Discharge Clinical Impression: Sore throat, Strep throat Condition: Good Disposition: HOME, SELF-CARE Instructions: Acetaminophen, Use of Uyfa-Evi-Whbndlo Ibuprofen ([facility]), Penicillin V K ([facility]), Sore Throat ([facility]), Strep Throat ([facility]) Additional Instructions: plenty of fluids Penicillin until it is gone Tylenol Motrin Chloraseptic spray to lower the throat pain Return to the emergency room for any worsening symptoms Prescriptions: Penicillin V Potassium [Penicillin Vk 500 mg Tablet] 500 mg PO QID #40 tablet Forms: Return to Work Referrals: WALT MARSH MD [Primary Care Provider] - Follow up as needed
== END 2017-09-10 11:58 | disposition home or self-care (01) ==
LOC: ER 10:39
DX: J02.0 Streptococcal pharyngitis (principal); R50.9 Fever, unspecified; F17.200 Nicotine dependence, unspecified, uncomplicated
CPT/HCPCS: 87880; 99282

== ENCOUNTER 2017-12-11 23:21 | Emergency (ER) | payer OTHER ==
[2017-12-12 00:52] LABS: ABSOLUTE EOSINOPHILS # (AUTO) 0.1 10^3/uL (0.0-0.6); ABSOLUTE LYMPHOCYTES (AUTO) 2.1 10^3/uL (0.5-4.7); ABSOLUTE MONOCYTES (AUTO) 0.3 10^3/uL (0.1-1.4); ABSOLUTE NEUT (AUTO) 4.7 10^3/uL (1.7-8.2); BASOPHILS % (AUTO) 0.5 % (0-2); EOSINOPHILS % (AUTO) 2.1 % (0-6); HEMATOCRIT 37.2 % (36.0-47.0); HEMOGLOBIN 12.8 g/dL (12.0-15.5); MEAN CORPUSCULAR HEMOGLOBIN 31.1 pg (27.0-33.4); MEAN CORPUSCULAR HGB CONC 34.5 g/dL (32.0-36.0); MEAN CORPUSCULAR VOLUME 90 fl (80-97); MONOCYTES % (AUTO) 3.6 % (3-13); PLATELET COUNT 389 10^3/uL (150-450); RED BLOOD COUNT 4.11 10^6/uL (3.72-5.28); SEGMENTED NEUTROPHILS % (AUTO) 64.8 % (42-78); TOTAL CELLS COUNTED % (AUTO) 100 %; WHITE BLOOD COUNT 7.3 10^3/uL (4.0-10.5)
[2017-12-12 01:23] LABS: ALANINE AMINOTRANSFERASE 35 U/L (9-52); ALKALINE PHOSPHATASE 67 U/L (38-126); ANION GAP 10 (5-19); ASPARTATE AMINO TRANSFERASE 28 U/L (14-36); BILIRUBIN,DIRECT 0.2 mg/dL (0.0-0.4); BILIRUBIN,TOTAL 0.2 mg/dL (0.2-1.3); BLOOD UREA NITROGEN 10 mg/dL (7-20); CALCIUM 9.1 mg/dL (8.4-10.2); CARBON DIOXIDE 29 mmol/L (22-30); CHLORIDE 102 mmol/L (98-107); GLUCOSE 80 mg/dL (75-110); SODIUM 140.6 mmol/L (137-145); TOTAL PROTEIN 6.8 g/dL (6.3-8.2)
--- NOTE | 2017-12-12 01:59 | ER Document Report ---
ED General - General Chief Complaint: Vag Bleeding, +preg <12wks Stated Complaint: WEAKNESS Time Seen by Provider: 12/12/17 00:28 Notes: Patient is a 32 year old with a known history of ectopic who has received 2 doses of methotrexate the last one being 48 hours ago who presents with complaints of generalized fatigue and feeling generally unwell. She notes that she is continued to have some vaginal spotting as well as mild, intermittent, lower abdominal cramping. She states that the [facility] was informed her to anticipate the symptoms but she is concerned about her degree of fatigue. She notes a history of anemia and is concerned with her vaginal bleeding and fatigue that she may have become severely anemic and would like her level checked. She notes that her abdominal pain is not her main concern actually denies any abdominal pain at the time of my evaluation. She denies any fever or constitutional symptoms. States she had similar symptoms after her first dose of methotrexate. TRAVEL OUTSIDE OF THE [place] IN LAST 30 DAYS: No - Related Data Allergies/Adverse Reactions: No Known Allergies Allergy (Verified 09/10/17 10:44) Past Medical History - General Information source: Patient - Social History Smoking Status: Never Smoker Frequency of alcohol use: None Drug Abuse: None Lives with: Spouse/Significant other Family History: Reviewed & Not Pertinent, Hypertension, Other - No bleeding disorder colon cancer - Past Medical History Cardiac Medical History: Reports: Hx Hypertension - only during Denies: Hx Congestive Heart Failure, Hx Heart Attack Pulmonary Medical History: Denies: Hx Asthma, Hx Bronchitis, Hx COPD, Hx Pneumonia, Hx Tuberculosis Neurological Medical History: Denies: Hx Seizures Renal/ Medical History: Denies: Hx End Stage Renal Disease, Hx Kidney Stones, Hx Peritoneal Dialysis GI Medical History: Reports: Hx Gastroesophageal Reflux Disease. Denies: Hx Cirrhosis, Hx Ulcer Musculoskeltal Medical History: Denies Hx Arthritis, Denies Hx Multiple Sclerosis Psychiatric Medical History: Reports: Hx Depression Denies: Hx Bipolar Disorder, Hx Schizophrenia Past Surgical History: Denies: Hx Hysterectomy - Immunizations Hx Diphtheria, Pertussis, Tetanus Vaccination: Yes Review of Systems - Review of Systems Notes: Constitutional: Negative for fever. HENT: Negative for sore throat. Positive for left ear pain Eyes: Negative for visual changes. Cardiovascular: Negative for chest pain. Respiratory: Negative for shortness of breath. Gastrointestinal: Positive for lower abdominal cramping Genitourinary: Positive for vaginal discharge Musculoskeletal: Negative for back pain. Skin: Negative for rash. Neurological: Negative for headaches, weakness or numbness. 10 point ROS negative except as marked above and in HPI. Physical Exam - Vital signs Vitals: Temp Pulse Resp BP Pulse Ox 98.5 F 116 H 22 H 140/86 H 98 12/11/17 23:33 12/11/17 23:33 12/11/17 23:33 12/11/17 23:33 12/11/17 23:33 Interpretation: Tachycardic - Resolved at the time of my assessment Notes: PHYSICAL EXAMINATION: GENERAL: Well-appearing, well-nourished and in no acute distress. HEAD: Atraumatic, normocephalic. EYES: Pupils equal round and reactive to light, extraocular movements intact, sclera anicteric, conjunctiva are normal. ENT: nares patent, oropharynx clear without exudates. Moist mucous membranes. Left TM with purulent effusion and mild bulging. Right TM clear. NECK: Normal range of motion, supple without lymphadenopathy LUNGS: Breath sounds clear to auscultation bilaterally and equal. No wheezes rales or rhonchi. HEART: Regular rate and rhythm without murmurs ABDOMEN: Soft, nontender, normoactive bowel sounds. No guarding, no rebound. No masses appreciated. EXTREMITIES: Normal range of motion, no pitting or edema. No cyanosis. NEUROLOGICAL: No focal neurological deficits. Moves all extremities spontaneously and on command. PSYCH: Normal mood, normal affect. SKIN: Warm, Dry, normal turgor, no rashes or lesions noted. Course - Re-evaluation Re-evalutation: 12/12/17 01:57 Patient presents with complaints of general weakness after having 2 doses of methotrexate for ectopic . She is concerned that she could be anemic. CBC does not show any evidence of anemia. Her hCG level has down trended from her previous noted hCG per her report at 610. She denies any abdominal pain and has no focal abdominal tenderness on examination. Otherwise very well in appearance, vitals within normal limits. I do not clinically suspect a ruptured ectopic , acute appendicitis, or any alternatively threatening pathology. Suspect that her symptoms are likely related to recently receiving methotrexate. Patient did also complain of some left ear pain and fullness. Otoscopic examination shows a left otitis media which will be treated with amoxicillin. At this time will discharge with return precautions and follow-up recommendations. Verbal discharge instructions given a the bedside and opportunity for questions given. Medication warnings reviewed. Patient is in agreement with this plan and has verbalized understanding of return precautions and the need for primary care follow-up in the next 24-72 hours. 12/12/17 02:06 - Vital Signs Vital signs: Temp Pulse Resp BP Pulse Ox 98.5 F 116 H 22 H 140/86 H 98 12/11/17 23:33 12/11/17 23:33 12/11/17 23:33 12/11/17 23:33 12/11/17 23:33 - Laboratory Result Diagrams: 12/12/17 00:35 12/12/17 00:35 Laboratory results interpreted by me: 12/12/17 00:35 Beta HCG, Quant 352.90 H Discharge - Discharge Clinical Impression: Vaginal bleeding Fatigue Qualifiers: Fatigue type: unspecified Qualified Code(s): R53.83 - Other fatigue Left otitis media Qualifiers: Otitis media type: suppurative Chronicity: acute Recurrence: not specified as recurrent Spontaneous tympanic membrane rupture: without spontaneous rupture Qualified Code(s): H66.002 - Acute suppurative otitis media without spontaneous rupture of ear drum, left ear Condition: Good Disposition: HOME, SELF-CARE Additional Instructions: Your hCG level is lower than it was previously. This is a positive sign in the setting of an ectopic that was treated with methotrexate. Your hemoglobin level is completely normal. Your symptoms are likely related to recently receiving methotrexate. Return to the emergency department if you develop a fever greater than 101F, persistent vomiting, severe abdominal pain, or any other symptoms that are worrisome to you. Follow-up with the [facility] at your earliest ability. You were seen today for ear pain and have an acute ear infection. Please take the antibiotic that has been prescribed until it is completed even if you are feeling better before you have finished all the antibiotics. For your pain: Take ibuprofen 600 mg and acetaminophen 1000 mg every 6 hours together as needed for pain. Return if you have worsening of your pain, loss of hearing in the affected ear, worsening facial pain, headaches, pass out, or any other symptoms that are worrisome to you. Prescriptions: Amoxicillin 1 tab PO TID #30 tab
[2017-12-12] MEDS ORDERED: AMOXICILLIN TRIHYDRATE 500 MG CAPSULE PO ONE (02:05)
[2017-12-12 03:13] VITALS: BP 130/68
== END 2017-12-12 03:11 | disposition home or self-care (01) ==
LOC: ER 23:21
DX: O46.90 Antepartum hemorrhage, unspecified, unspecified trimester (principal); O26.819 Pregnancy related exhaustion and fatigue, unspecified trimester; O26.899 Other specified pregnancy related conditions, unspecified trimester; H66.002 Acute suppurative otitis media without spontaneous rupture of ear drum, left ear; R53.1 Weakness; R10.30 Lower abdominal pain, unspecified; O00.90 Unspecified ectopic pregnancy without intrauterine pregnancy; Z3A.00 Weeks of gestation of pregnancy not specified
CPT/HCPCS: 36415; 80053; 84702; 85025; 99284

== ENCOUNTER 2018-05-02 12:45 | Emergency (ER) | payer OTHER ==
[2018-05-02] MEDS ORDERED: KETOROLAC TROMETHAMINE 60 MG/2 ML SDV IM ONE (13:30)
[2018-05-02] MEDS ORDERED: DIAZEPAM 5 MG TABLET PO ONE ×2 (13:30→13:45)
--- NOTE | 2018-05-02 13:32 | ER Document Report ---
ED Medical Screen (RME) - General TRAVEL OUTSIDE OF THE [place] IN LAST 30 DAYS: No - General Chief Complaint: Headache Stated Complaint: HEADACHE, NECK/SHOULDER PAIN Time Seen by Provider: 05/02/18 13:30 Notes: 33 years old female with a history of migraine headache, presents today with bilateral shoulder pain and neck pain as well as frontal headache. Associated with nausea and vomited about 15 times she says. No fever chills or other constitutional symptoms. On examination-diffuse tenderness over both trapezius muscles distribution. Not appear to be dehydrated (CAREY MATA) - Related Data Allergies/Adverse Reactions: No Known Allergies Allergy (Verified 05/02/18 12:46) Past Medical History - Social History Chew tobacco use (# tins/day): No Frequency of alcohol use: None Drug Abuse: None - Past Medical History Cardiac Medical History: Reports: Hx Hypertension - only during Denies: Hx Congestive Heart Failure, Hx Heart Attack Pulmonary Medical History: Denies: Hx Asthma, Hx Bronchitis, Hx COPD, Hx Pneumonia, Hx Tuberculosis Neurological Medical History: Denies: Hx Seizures Renal/ Medical History: Denies: Hx End Stage Renal Disease, Hx Kidney Stones, Hx Peritoneal Dialysis GI Medical History: Reports: Hx Gastroesophageal Reflux Disease. Denies: Hx Cirrhosis, Hx Ulcer Musculoskeltal Medical History: Denies Hx Arthritis, Denies Hx Multiple Sclerosis Psychiatric Medical History: Reports: Hx Depression Denies: Hx Bipolar Disorder, Hx Schizophrenia Past Surgical History: Denies: Hx Hysterectomy - Immunizations Hx Diphtheria, Pertussis, Tetanus Vaccination: Yes - Vital signs Vitals: Temp Pulse Resp BP Pulse Ox 98.8 F 107 H 18 143/89 H 99 05/02/18 12:49 05/02/18 12:49 05/02/18 12:49 05/02/18 12:49 05/02/18 12:49 - Vital Signs Vital signs: Temp Pulse Resp BP Pulse Ox 98.8 F 107 H 18 143/89 H 99 05/02/18 12:49 05/02/18 12:49 05/02/18 12:49 05/02/18 12:49 05/02/18 12:49
--- NOTE | 2018-05-02 14:34 | ER Document Report ---
ED Headache - General Chief Complaint: Headache Stated Complaint: HEADACHE, NECK/SHOULDER PAIN Time Seen by Provider: 05/02/18 13:30 Mode of Arrival: Ambulatory Information source: Patient Notes: 33-year-old female presented ED with history of migraine headaches presents today with bilateral shoulder pain and neck pain that she has it sometimes with a frontal headache. She states she has some nausea and vomiting about 15 times. She has no fever chills or any other symptoms. She was seen in the pit area and given Valium. When I examined her she had no muscle pain to the shoulders or neck. She states her headache was much better but she was still a little nauseated. She states what she really needed was some medicine to go home with for no nausea. She is alert and oriented respirations regular and unlabored speaking with full sentences pupils equal and react to light. TRAVEL OUTSIDE OF THE [place] IN LAST 30 DAYS: No - HPI Patient complains to provider of: Headache Patient reports: Hx chronic headaches Onset was: Gradual Timing: Gone now Quality of pain: Achy Severity: None Pain Level: Denies Associated symptoms: Dizzy Exacerbated by: Movement, Position Similar symptoms previously: Yes Recently seen / treated by doctor: No - Related Data Allergies/Adverse Reactions: No Known Allergies Allergy (Verified 05/02/18 12:46) Past Medical History - General Information source: Patient - Social History Smoking Status: Current Every Day Smoker Cigarette use (# per day): Yes - 3 cigs a day Chew tobacco use (# tins/day): No Smoking Education Provided: Yes - 4 min Frequency of alcohol use: None Drug Abuse: None 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 Lives with: Family Family History: Reviewed & Not Pertinent, Hypertension, Other - No bleeding disorder colon cancer Patient has suicidal ideation: No Patient has homicidal ideation: No - Past Medical History Cardiac Medical History: Reports: Hx Hypertension - only during Pulmonary Medical History: Reports: Hx Pneumonia EENT Medical History: Reports: None Neurological Medical History: Reports: Hx Migraine Endocrine Medical History: Reports: None Renal/ Medical History: Reports: None Malignancy Medical History: Reports: None GI Medical History: Reports: Hx Gastroesophageal Reflux Disease, Hx Colonoscopy , Hx Endoscopy Musculoskeletal Medical History: Reports None Psychiatric Medical History: Reports: Hx Anxiety, Hx Bipolar Disorder, Hx Depression Traumatic Medical History: Reports: None Infectious Medical History: Reports: None. Denies: Hx C-Diff, Hx Hepatitis, Hx HIV, Hx MRSA, Hx VRE, Other Surgical Hx: Negative Past Surgical History: Reports: None - Immunizations Hx Diphtheria, Pertussis, Tetanus Vaccination: Yes Review of Systems - Review of Systems Constitutional: No symptoms reported EENT: No symptoms reported Cardiovascular: No symptoms reported Respiratory: No symptoms reported Gastrointestinal: No symptoms reported Genitourinary: No symptoms reported Female Genitourinary: No symptoms reported Musculoskeletal: No symptoms reported Skin: No symptoms reported Hematologic/Lymphatic: No symptoms reported Neurological/Psychological: Headaches - None when I assessed her -: Yes All other systems reviewed and negative Physical Exam - Vital signs Vitals: Temp Pulse Resp BP Pulse Ox 98.8 F 107 H 18 143/89 H 99 05/02/18 12:49 05/02/18 12:49 05/02/18 12:49 05/02/18 12:49 05/02/18 12:49 Interpretation: Normal - General General appearance: Appears well, Alert - HEENT Head: Normocephalic, Atraumatic Eyes: Normal Pupils: PERRL - Respiratory Respiratory status: No respiratory distress Chest status: Nontender Breath sounds: Normal Chest palpation: Normal - Cardiovascular Rhythm: Regular Heart sounds: Normal auscultation Murmur: No - Abdominal Inspection: Normal Distension: No distension Bowel sounds: Normal Tenderness: Nontender Organomegaly: No organomegaly - Back Back: Normal, Nontender - Extremities General upper extremity: Normal inspection, Nontender, Normal color, Normal ROM , Normal temperature General lower extremity: Normal inspection, Nontender, Normal color, Normal ROM , Normal temperature, Normal weight bearing. No: Rafiq's sign - Neurological Neuro grossly intact: Yes Cognition: Normal Orientation: AAOx4 [place] Coma Scale Eye Opening: Spontaneous Jessica Coma Scale Verbal: Oriented [place] Coma Scale Motor: Obeys Commands Jessica Coma Scale Total: 15 Speech: Normal Motor strength normal: LUE, RUE, LLE, RLE Sensory: Normal - Psychological Associated symptoms: Normal affect, Normal mood - Skin Skin Temperature: Warm Skin Moisture: Dry Skin Color: Normal Course - Re-evaluation Re-evalutation: 05/02/18 16:18 After performing a Medical Screening Examination, I estimate there is LOW risk for ACUTE GLAUCOMA, TEMPORAL ARTERITIS, MENINGITIS, INCRANIAL HEMORRHAGE, or ISCHEMIC STROKE thus I consider the discharge disposition reasonable. I have reevaluated this patient multiple times and no significant life threatening changes are noted. The patient and I have discussed the diagnosis and risks, and we agree with discharging home with close follow-up with the understanding that symptoms and presentations can change. We also discussed returning to the Emergency Department immediately if new or worsening symptoms occur. We have discussed the symptoms which are most concerning (e.g., changing or worsening symptoms, new numbness or weakness, vomiting, fever) that necessitate immediate return. - Vital Signs Vital signs: Temp Pulse Resp BP Pulse Ox 98.2 F 82 18 133/89 H 97 05/02/18 14:35 05/02/18 14:35 05/02/18 14:35 05/02/18 14:35 05/02/18 14:35 Discharge - Discharge Clinical Impression: Muscle strain, shoulder region Qualifiers: Encounter type: initial encounter Laterality: unspecified laterality Qualified Code(s): S46.919A - Strain of unspecified muscle, fascia and tendon at shoulder and upper arm level, unspecified arm, initial encounter Headache Qualifiers: Headache type: unspecified Headache chronicity pattern: chronic headache Intractability: not intractable Qualified Code(s): R51 - Headache Condition: Stable Disposition: HOME, SELF-CARE Instructions: Family Physicians / Practices Additional Instructions: HEADACHE: The physician does not feel that the headache you are experiencing has a serious underlying cause. Most headaches are due to emotional stress, with resultant muscle tension (tension headache). Occasionally, headaches are secondary to changes in the blood vessels of the scalp (vascular headache and migraine headache). Sometimes, a headache is the first symptom of another developing illness, such as a viral infection. You have no evidence of stroke, bleeding, meningitis, or other serious cause of your headache. The treatment of headaches varies with the severity and cause of the pain. Not all headaches need pain shots. In fact, there is evidence that using narcotics for headaches may make them worse in the long run. The physician will determine the therapy that's in your best interest. If you develop a fever, if the headache is different from any you've previously experienced, or if the headache progressively worsens, then call your physician at once or go to the emergency room. Benzodiazepines You have been given a benzodiazepine medication. Examples of this type of medicine include Valium, Xanax, Librium, Ativan, and Halcion. Benzodiazepines have many uses. Medications of this type are used for insomnia, anxiety, muscle spasms, seizures, and drug and alcohol withdrawal. You may become very drowsy when you first take the medication. You should not drive or operate machinery while under its effects. Do not combine the medication with alcohol, or with any other medication without talking to your doctor. Do not take if without specific instruction from your marble mason. Some benzodiazepines may have harmful interactions with oral antifungal medicines such as ketoconazole, itraconazole, and nefazodone. If you are taking an antifungal medicine, discuss this with your doctor before taking benzodiazepines. USE OF DIPHENHYDRAMINE: Diphenhydramine (Benadryl) is an antihistamine and has been recommended to help treat your headache and to prevent side effects of other medications used to treat headaches. The medication can be repeated four times daily. Age Elixir (12.5 mg/tsp) 25 mg pill adult 1-2 tabs Antihistamines may cause drowsiness, especially with the first dose. Do not operate machinery or drive while under the effects of the medication. Do not combine the medication with alcohol, or with any other medication without talking to your doctor. ANTINAUSEA MEDICATION: You have been given a medication to suppress nausea and vomiting. This type of medication can be given as a shot, pill, or suppository. It will usually last for many hours. Pills and shots usually last six to eight hours, suppositories last about 12 hours. For the typical illness, only one or two doses of the medication may be necessary. Mild lightheadedness may occur. This type of medicine can cause drowsiness. Do not drive or operate dangerous machinery while under its influence. Do not mix with alcohol. See your doctor at once if you have muscle spasms or tightness, or uncontrollable motions (particularly of the neck, mouth, or jaw). Persistent vomiting or severe lightheadedness should also be evaluated by the physician. COMPAZINE FOR HEADACHE: You have received therapy for headaches, using intravenous Compazine. This treatment is dramatically successful in relieving the headache in about 50 percent of cases. When it works, it provides a rapid method of eliminating the headache without resorting to narcotics (and the problems associated with them). Most patients still feel fully alert after the Compazine, but others may be slightly drowsy. It's best not to drive or work with machinery for six to eight hours. Do not take alcohol or other medication unless you discuss it with the doctor. If you develop tightness and spasms in your muscles, especially the neck and tongue, you should return. This is a side effect which can be treated. Ibuprofen Ibuprofen is an excellent, safe drug for pain control. In addition, it has potent antiinflammatory effects which are beneficial, especially in the treatment of injuries, arthritis, or tendonitis. It's best to take ibuprofen with food. Persons with ulcer disease or allergy to aspirin should notify their physician of this before taking ibuprofen. Take the medication exactly as prescribed. Don't take additional doses unless instructed to do so by your doctor. If you develop wheezing, shortness of breath, hives, faintness, stomach pain, vomiting, or dark black stools, return for re-evaluation at once. Exercise Program for the Shoulder Since the shoulder moves in so many directions, the joint attachment is weak. Muscles provide most of the stability to the shoulder. You must exercise your shoulder to prevent painful instability or stiffening. PASSIVE - These may be begun within a few days of the injury. While standing, lean forward, allowing the arm to hang down towards the floor. Move the arm in small circles while slowly twisting your chest towards and away from the hanging arm. Do this for one minute. ACTIVE - These may be performed when the doctor gives permission. Begin with the arms at the sides. Raise the arms forward (shoulder's width apart) until they reach shoulder level. Then slowly swing both arms back until they are aiming straight out away from each other. Then bring them forward again, and finally, lower them to your sides. Repeat 20 to 30 times. As you improve, put weights in your hands for the exercise. Start with one pound, and work up to 10 pounds. Never use more than is comfortable. Athletes may work up to 30 pounds. FOLLOW-UP CARE: If you have been referred to a physician for follow-up care, call the physician s office for an appointment as you were instructed or within the next two days. If you experience worsening or a significant change in your symptoms, notify the physician immediately or return to the Emergency Department at any time for re-evaluation. Prescriptions: Ibuprofen 800 mg PO Q8HP PRN #14 tablet PRN Reason: Prochlorperazine Maleate [Compazine 10 mg Tablet] 10 mg PO Q8HP PRN #14 tablet PRN Reason: Forms: Elevated Blood Pressure, Return to Work
[2018-05-02 14:36] VITALS: BP 133/89
== END 2018-05-02 14:42 | disposition home or self-care (01) ==
LOC: ER 12:45
DX: S46.919A Strain of unspecified muscle, fascia and tendon at shoulder and upper arm level, unspecified arm, initial encounter (principal); R51 Headache; M25.511 Pain in right shoulder; M25.512 Pain in left shoulder; M54.2 Cervicalgia; R11.2 Nausea with vomiting, unspecified; R42 Dizziness and giddiness; F17.210 Nicotine dependence, cigarettes, uncomplicated; I10 Essential (primary) hypertension; X58.XXXA Exposure to other specified factors, initial encounter
CPT/HCPCS: 99406; 99283; 96372; J1885

== ENCOUNTER 2018-10-26 13:37 | Emergency (ER) | payer BC, OTHER ==
--- NOTE | 2018-10-26 14:27 | RADIOLOGY REPORT (SQ) ---
EXAM DESCRIPTION: ANKLE RIGHT COMPLETE COMPLETED DATE/TIME: 10/26/2018 2:17 pm REASON FOR STUDY: Tripped, pain and swelling COMPARISON: None. NUMBER OF VIEWS: Three views. TECHNIQUE: AP, lateral, and oblique radiographic images acquired of the right ankle. LIMITATIONS: None. FINDINGS: MINERALIZATION: Normal. BONES: No acute fracture or dislocation. No worrisome bone lesions. JOINTS: No large fusion. SOFT TISSUES: Anterior and lateral soft tissue swelling. No foreign body. OTHER: No other significant finding. IMPRESSION: SOFT TISSUE SWELLING. NO FRACTURE OR ACUTE BONY FINDINGS. TECHNICAL DOCUMENTATION: JOB ID: [id number] [employer]- All Rights Reserved Reading location - IP/workstation name: [email or web address]
[2018-10-26] MEDS ORDERED: HYDROCODONE/ACETAMINOPHEN 5-325 MG TABLET PO ONE (14:51)
[2018-10-26] MEDS ORDERED: MORPHINE SULFATE 10 MG/ML INJ IV ONE (14:54)
[2018-10-26] MEDS ORDERED: NORMAL SALINE 1000 ML 1,000 ML IV ONE (14:54)
--- NOTE | 2018-10-26 14:58 | ER Document Report ---
HPI - HPI Patient complains to provider of: Ankle injury Time Seen by Provider: 10/26/18 14:43 Onset: Just prior to arrival Onset/Duration: Sudden Quality of pain: Sharp Pain Level: 5 Context: Patient [place] rolling her ankle. Patient complains of right lateral ankle pain. Patient tachycardic at check- in. Patient denies any chest pain dyspnea or palpitations at this time. Patient states that she does take Adderall and she took her dose later than normal today. Associated Symptoms: Other - Right ankle pain. denies: Chest pain, Nonproductive cough, Productive cough, Fever, Headache, Vomiting Exacerbated by: Standing, Movement, Walking Relieved by: Denies Similar symptoms previously: No Recently seen / treated by doctor: No - ROS ROS below otherwise negative: Yes Systems Reviewed and Negative: Yes All other systems reviewed and negative - CONSTITUTIONAL Constitutional: DENIES: Fever - NEURO Neurology: DENIES: Headache, Weakness - CARDIOVASCULAR Cardiovascular: DENIES: Chest pain - RESPIRATORY Respiratory: DENIES: Trouble Breathing, Coughing - GASTROINTESTINAL Gastrointestinal: DENIES: Nausea, Patient vomiting - REPRODUCTIVE Reproductive: DENIES: : - MUSCULOSKELETAL Musculoskeletal: REPORTS: Extremity pain, Swelling. 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 Denies: Hx Seizures GI Medical History: Reports: Hx Gastroesophageal Reflux Disease, Hx Colonoscopy, Hx Endoscopy Psychiatric Medical History: Reports: Hx Anxiety, Hx Bipolar Disorder, Hx Depression Denies: Hx Schizophrenia Surgical Hx: Negative Past Surgical History: Denies: Hx Hysterectomy - Immunizations Hx Diphtheria, Pertussis, Tetanus Vaccination: Yes Vertical Provider Document - CONSTITUTIONAL Agree With Documented VS: Yes Exam Limitations: No Limitations General Appearance: WD/WN, No Apparent Distress - INFECTION CONTROL TRAVEL OUTSIDE OF THE [place] IN LAST 30 DAYS: No - HEENT HEENT: Atraumatic, Normocephalic - NECK Neck: Normal Inspection, Supple. negative: Lymphadenopathy-Left, Lymphadenopathy-Right - RESPIRATORY Respiratory: Breath Sounds Normal, No Respiratory Distress - CARDIOVASCULAR Cardiovascular: Regular Rhythm, No Murmur, Tachycardia - BACK Back: Normal Inspection - MUSCULOSKELETAL/EXTREMETIES Musculoskeletal/Extremeties: MAEW, Tender - Right ankle tenderness over lateral malleolar area with 2+ edema, Edema. negative: Eccymosis - NEURO Level of Consciousness: Awake, Alert, Appropriate Motor/Sensory: No Motor Deficit - DERM Integumentary: Warm, Dry, No Rash Course - Re-evaluation Re-evalutation: 10/26/18 16:32 Patient's vital signs normalized, discuss results of diagnostic test with patient. Patient encouraged to follow-up with orthopedics for further evaluation. - Vital Signs Vital signs: Temp Pulse Resp BP Pulse Ox 98.1 F 138 H 20 156/112 H 98 10/26/18 13:42 10/26/18 13:42 10/26/18 13:42 10/26/18 13:42 10/26/18 13:42 - Laboratory Result Diagrams: 10/26/18 15:17 10/26/18 15:17 Laboratory results interpreted by me: 10/26/18 16:32 Labs- Entire Visit 10/26/18 10/26/18 10/26/18 15:17 15:17 15:17 WBC 9.1 RBC 4.57 Hgb 14.5 Hct 40.7 MCV 89 MCH 31.6 MCHC 35.5 RDW 12.6 Plt Count 422 Seg Neutrophils % 77.1 Lymphocytes % 17.5 Monocytes % 4.2 Eosinophils % 0.8 Basophils % 0.4 Absolute Neutrophils 7.0 Absolute Lymphocytes 1.6 Absolute Monocytes 0.4 Absolute Eosinophils 0.1 Absolute Basophils 0.0 Sodium 138.5 Potassium 4.5 Chloride 103 Carbon Dioxide 27 Anion Gap 9 BUN 8 Creatinine 0.49 L Est GFR ( Amer) > 60 Est GFR (Non-Af Amer) > 60 Glucose 92 Calcium 9.1 TSH 0.67 - Diagnostic Test Radiology reviewed: Reports reviewed Procedures - Immobilization Right Ankle Pre-Proc Neuro Vasc Exam: Normal Immobilizer type: Ankle stirrup Performed by: PCT Post-Proc Neuro Vasc Exam: Normal Alignment checked and good: Yes Discharge - Discharge Clinical Impression: Ankle sprain Qualifiers: Encounter type: initial encounter Involved ligament of ankle: unspecified ligament Laterality: right Qualified Code(s): S93.401A - Sprain of unspecified ligament of right ankle, initial encounter Condition: Stable Disposition: HOME, SELF-CARE Instructions: Ankle Stirrup Splint ([facility]), Use of Crutches ([facility]), Ice & Elevation ([facility]), Sprained Ankle ([facility]) Additional Instructions: Return immediately for any new or worsening symptoms Followup with your primary care provider, call tomorrow to make a followup appointment Weightbearing as tolerated Follow-up with orthopedics for any persistent pain or problems Prescriptions: Naproxen [Naprosyn 250 Nmg Tablet] 1 tab PO BID #14 tablet Forms: Return to Work Referrals: LEONOR DRUMMOND NP [COMMUNITY BASED STAFF] - Follow up tomorrow
[2018-10-26] MEDS ORDERED: ONDANSETRON HCL INJ/PF 4 MG/2 ML SDV IV ONE (15:20)
[2018-10-26 15:33] LABS: ABSOLUTE EOSINOPHILS # (AUTO) 0.1 10^3/uL (0.0-0.6); ABSOLUTE LYMPHOCYTES (AUTO) 1.6 10^3/uL (0.5-4.7); ABSOLUTE MONOCYTES (AUTO) 0.4 10^3/uL (0.1-1.4); BASOPHILS % (AUTO) 0.4 % (0-2); EOSINOPHILS % (AUTO) 0.8 % (0-6); HEMATOCRIT 40.7 % (36.0-47.0); HEMOGLOBIN 14.5 g/dL (12.0-15.5); LYMPHOCYTES % (AUTO) 17.5 % (13-45); MEAN CORPUSCULAR HEMOGLOBIN 31.6 pg (27.0-33.4); MEAN CORPUSCULAR HGB CONC 35.5 g/dL (32.0-36.0); MEAN CORPUSCULAR VOLUME 89 fl (80-97); MONOCYTES % (AUTO) 4.2 % (3-13); PLATELET COUNT 422 10^3/uL (150-450); RED BLOOD COUNT 4.57 10^6/uL (3.72-5.28); RED CELL DISTRIBUTION WIDTH 12.6 % (11.5-14.0); SEGMENTED NEUTROPHILS % (AUTO) 77.1 % (42-78); TOTAL CELLS COUNTED % (AUTO) 100 %; WHITE BLOOD COUNT 9.1 10^3/uL (4.0-10.5)
[2018-10-26 15:56] LABS: ANION GAP 9 (5-19); BLOOD UREA NITROGEN 8 mg/dL (7-20); CALCIUM 9.1 mg/dL (8.4-10.2); CARBON DIOXIDE 27 mmol/L (22-30); CHLORIDE 103 mmol/L (98-107); GLUCOSE 92 mg/dL (75-110); POTASSIUM 4.5 mmol/L (3.6-5.0); SODIUM 138.5 mmol/L (137-145)
[2018-10-26 16:28] VITALS: BP 130/80
--- NOTE | 2018-10-26 18:58 | EKG REPORT ---
SEVERITY:- OTHERWISE NORMAL ECG - SINUS TACHYCARDIA : Confirmed by: Kamron Billy MD 26-Oct-2018 18:58:05
== END 2018-10-26 16:55 | disposition home or self-care (01) ==
LOC: ER 13:37
DX: S93.401A Sprain of unspecified ligament of right ankle, initial encounter (principal); M25.571 Pain in right ankle and joints of right foot; X50.0XXA Overexertion from strenuous movement or load, initial encounter; Y93.01 Activity, walking, marching and hiking; Y92.832 Beach as the place of occurrence of the external cause; Z79.899 Other long term (current) drug therapy
CPT/HCPCS: 93005; 99284; 96361; 96374; 96375; 36415; 84443; 85025; 80048; 73610; 93010; L1902; J2270; J2405; J7030

== ENCOUNTER 2019-07-05 18:22 | Emergency (ER) | payer BC ==
[2019-07-05 19:53] VITALS: BP 150/105
--- NOTE | 2019-07-05 19:57 | ER Document Report ---
HPI - HPI Time Seen by Provider: 07/05/19 19:45 Notes: Patient is a 34-year-old female who presents complaining of intermittent right ear pain for the past "18 days." Patient states that the pain will radiate into her jaw and down into her neck on occasion and it feels like it needs to release pressure. Denies drug allergies. She does have some nasal congestion on the right side. She is able to eat and drink without difficulty. She is urinating normally. Denies any headache, fever, neck pain, changes in vision/speech/mentation/hearing, URI, sore throat, chest pain, palpitations, syncope, cough, shortness of breath, wheeze, dyspnea, abdominal pain, nausea/vomiting/diarrhea, urinary retention, dysuria, hematuria, or rash. - ROS Systems Reviewed and Negative: Yes All other systems reviewed and negative - REPRODUCTIVE Reproductive: DENIES: : Past Medical History - Social History Smoking Status: Unknown if Ever Smoked Family History: Reviewed & Not Pertinent, Hypertension, Other - No bleeding disorder colon cancer - Past Medical History Cardiac Medical History: Reports: Hx Hypertension - only during Denies: Hx Congestive Heart Failure, Hx Heart Attack Pulmonary Medical History: Reports: Hx Pneumonia Denies: Hx Asthma, Hx Bronchitis, Hx COPD, Hx Tuberculosis Neurological Medical History: Reports: Hx Migraine. Denies: Hx Seizures, Hx Parkinson's Disease Renal/ Medical History: Denies: Hx End Stage Renal Disease, Hx Kidney Stones, Hx Peritoneal Dialysis GI Medical History: Reports: Hx Gastroesophageal Reflux Disease, Hx Colonoscopy, Hx Endoscopy. Denies: Hx Cirrhosis, Hx Hepatitis, Hx Ulcer Musculoskeletal Medical History: Denies Hx Arthritis, Denies Hx Multiple Sclerosis Psychiatric Medical History: Reports: Hx Anxiety, Hx Bipolar Disorder, Hx Depression Denies: Hx Schizophrenia Infectious Medical History: Denies: Hx C-Diff, Hx Hepatitis, Hx HIV, Hx MRSA, Hx VRE Past Surgical History: Denies: Hx Hysterectomy - Immunizations Hx Diphtheria, Pertussis, Tetanus Vaccination: Yes Vertical Provider Document - CONSTITUTIONAL Agree With Documented VS: Yes Notes: PHYSICAL EXAMINATION: GENERAL: Well-appearing, well-nourished and in no acute distress. A&Ox4. Answers questions appropriately. Moves comfortably w/o notable distress HEAD: Atraumatic, normocephalic. EYES: Pupils equal round and reactive to light, extraocular movements intact, sclera anicteric, conjunctiva are normal. ENT: EAC clear b/l. TM's intact b/l without erythema, fluid, or perforation. Nares patent and without discharge. oropharynx no erythema without exudates. No tonsilar hypertrophy without erythema or exudate. No palatine shift. Uvula midline. No tongue protrusion. No drooling, hoarseness, or airway compromise. Moist mucous membranes. No sinus tenderness. NECK: Normal range of motion, supple without lymphadenopathy. No rigidity/meningismus. LUNGS: Breath sounds clear to auscultation bilaterally and equal. No wheezes rales or rhonchi. No retractions HEART: Regular rate and rhythm without murmurs, rubs, gallops. NEUROLOGICAL: Normal speech, normal gait. PSYCH: Normal mood, normal affect. SKIN: Warm, Dry, normal turgor, no rashes or lesions noted. - INFECTION CONTROL TRAVEL OUTSIDE OF THE [place] IN LAST 30 DAYS: No Course - Re-evaluation Re-evalutation: 07/05/19 19:50 Patient is an afebrile, well-hydrated, 34-year-old female who presents with otalgia of the right ear, suspect eustachian tube dysfunction. Vitals are acceptable without significant tachycardia, tachypnea, hypoxia. PE is otherwise unremarkable. Patient is nontoxic-appearing and is tolerating p.o. without diff iculty. No labs or imaging warranted. Low suspicion for any sepsis, meningitis, severe dehydration, respiratory compromise, mastoiditis, Mnire's disease, or other systemic emergent condition at this time. Patient is aware that condition can change from initial presentation and she needs to monitor symptoms closely and seek medical attention with any acute changes. Recheck with your PCM next week. Consider consult with ENT. Return to the ED with any other worsening/concerning symptoms. Patient is in agreement. - Vital Signs Vital signs: Temp Pulse Resp BP Pulse Ox 97.8 F 113 H 18 155/115 H 97 07/05/19 18:29 07/05/19 18:29 07/05/19 18:29 07/05/19 18:29 07/05/19 18:29 Discharge - Discharge Clinical Impression: Otalgia, right ear Condition: Stable Disposition: HOME, SELF-CARE Additional Instructions: Maintain adequate fluid intake Take meds as directed tylenol/ibuprofen as needed Avoid Q-tips in the ears over the counter cold medication as needed for symptoms F/u: with your PCM in 2-3 days for a recheck Consider consult with ENT Return to the ED with any fever, dizziness, tinnitus, headaches, worsening pain, chest pain, palpitations, syncope, neck pain/stiffness, shortness of breath, wheezing, drooling, trouble swallowing/breathing, abdominal pain, n/v/d, rash, or worsening/concerning symptoms otherwise. Forms: Elevated Blood Pressure Referrals: ALAN JAMA DO [ASSOCIATE] - Follow up as needed
== END 2019-07-05 20:00 | disposition home or self-care (01) ==
LOC: ER 18:22
DX: H92.01 Otalgia, right ear (principal); R09.81 Nasal congestion
CPT/HCPCS: 99282

== ENCOUNTER 2020-03-30 09:52 | Outpatient (CLI) | payer MEDICAID ==
[2020-03-30 10:45] LABS: BACTERIA (WET MOUNT) 4+ BACTERIA SEEN; EPITHELIALS (WET MOUNT) 4+ EPITHELIALS SEEN; RBCS (WET MOUNT) FEW RBCS SEEN; T.VAGINALIS (WET MOUNT) NO TRICHOMONAS SEEN; WBCS (WET MOUNT) 3+ WBCS SEEN; YEAST (WET MOUNT) NO YEAST SEEN
[2020-03-30 10:46] LABS: APPEARANCE,URINE CLEAR; BILIRUBIN,URINE NEGATIVE (NEGATIVE); COLOR,URINE YELLOW; GLUCOSE, URINE >=500 mg/dL (NEGATIVE); KETONES,URINE TRACE mg/dL (NEGATIVE); LEUKOCYTE ESTERASE,URINE NEGATIVE (NEGATIVE); NITRITE,URINE NEGATIVE (NEGATIVE); PROTEIN,URINE NEGATIVE (NEGATIVE); UROBILINOGEN,URINE NEGATIVE mg/dL (<2.0)
--- NOTE | 2020-03-30 10:59 | RADIOLOGY REPORT (SQ) ---
EXAM DESCRIPTION: U/S OB LIMITED IMAGES COMPLETED DATE/TIME: 03/30/2020 10:37 am REASON FOR STUDY: cervical length, vag bleeding COMPARISON: None. TECHNIQUE: Limited transvaginal and transabdominal grayscale ultrasound for evaluation of specific r equested obstetrical parameters. LIMITATIONS: None. FINDINGS: CERVICAL LENGTH: 3.4 cm. Closed. FHR: 162 beats per minute. PRESENTATION: Cephalic. PLACENTA: Not assessed ANATOMY: Not assessed OTHER: No other significant findings. IMPRESSION: LIMITED OBSTETRICAL ULTRASOUND WITH MEASURED PARAMETERS DELINEATED ABOVE. Trimester of : Third trimester - 28 weeks to delivery. TECHNICAL DOCUMENTATION: JOB ID: [id number] 2010 [employer]- All Rights Reserved Reading location - IP/workstation name: [email or web address]
[2020-03-30 11:00] LABS: URINE AMPHETAMINES SCREEN NEGATIVE; URINE BARBITURATES SCREEN NEGATIVE; URINE BENZODIAZEPINES SCREEN NEGATIVE; URINE COCAINE SCREEN NEGATIVE; URINE METHADONE SCREEN NEGATIVE; URINE PHENCYCLIDINE SCREEN NEGATIVE
--- NOTE | 2020-03-30 11:04 | Non Stress Test Report ---
Non Stress Test Datetime Report Generated by CPN: 03/30/2020 11:03 DEMOGRAPHIC EGA NST: 32.3 INDICATION Indication for Study (NST) Other: vaginal bleeding MONITORING Monitor Explained: Monitor Explained; Test Explained; Patient Verbalized Understanding Time on Monitor: 03/30/2020 10:34 Time off Monitor: 03/30/2020 10:58 NST Duration: 24 NST INTERVENTIONS NST Interventions: None Physician Notified NST: Dr Cricket BABY A: [id number] BABY A Movement : Present Contraction Frequency : irregular FHR Baseline : 145 Accelerations : 15X15 Variability : Moderate 6-25bpm NST Review: Meets Criteria for Reactive NST NST Review and Verified By : Stan Evans RN NST Results: Reactive NST COMMENTS NST Comments: MD on unit NST REPORT Report Trigger: Send Report
[2020-03-30 11:12] LABS: URINE MARIJUANA (THC) SCREEN UNCONFIRMED POSITIVE
[2020-03-30 12:20] LABS: CHLAM PCR NOT DETECTED (NOT DETECT)
== END 2020-03-30 11:11 | disposition home or self-care (01) ==
LOC: LC 09:52
PROVIDERS: ATTEND Obstetrics & Gynecology
DX: O46.93 Antepartum hemorrhage, unspecified, third trimester (principal); Z3A.32 32 weeks gestation of pregnancy
CPT/HCPCS: 87210; 81001; 80307; 87491; 87591; 76815; 59899; G0480 ×2; 80349

== ENCOUNTER 2020-04-14 15:05 | Outpatient (CLI) | payer MEDICAID ==
[2020-04-14] MEDS ORDERED: ACETAMINOPHEN 325 MG TABLET PO PRN (15:34)
[2020-04-14 16:55] LABS: APPEARANCE,URINE SLIGHTLY-CLOUDY; BILIRUBIN,URINE NEGATIVE (NEGATIVE); CALCIUM OXALATE CRYSTALS,URINE MANY /HPF; COLOR,URINE YELLOW; GLUCOSE, URINE 150 mg/dL (NEGATIVE); KETONES,URINE TRACE mg/dL (NEGATIVE); LEUKOCYTE ESTERASE,URINE NEGATIVE (NEGATIVE); NITRITE,URINE NEGATIVE (NEGATIVE); PROTEIN,URINE 30 mg/dL (NEGATIVE); URINE SPECIFIC GRAVITY 1.027
[2020-04-14 17:46] LABS: ABSOLUTE EOSINOPHILS # (AUTO) 0.1 10^3/uL (0.0-0.6); ABSOLUTE LYMPHOCYTES (AUTO) 1.3 10^3/uL (0.5-4.7); ABSOLUTE MONOCYTES (AUTO) 0.6 10^3/uL (0.1-1.4); ABSOLUTE NEUT (AUTO) 6.7 10^3/uL (1.7-8.2); BASOPHILS % (AUTO) 0.4 % (0-2); HEMATOCRIT 35.7 % (36.0-47.0); HEMOGLOBIN 12.4 g/dL (12.0-15.5); LYMPHOCYTES % (AUTO) 15.4 % (13-45); MEAN CORPUSCULAR HEMOGLOBIN 31.2 pg (27.0-33.4); MEAN CORPUSCULAR HGB CONC 34.7 g/dL (32.0-36.0); MEAN CORPUSCULAR VOLUME 90 fl (80-97); MONOCYTES % (AUTO) 6.4 % (3-13); PLATELET COUNT 374 10^3/uL (150-450); RED BLOOD COUNT 3.97 10^6/uL (3.72-5.28); RED CELL DISTRIBUTION WIDTH 13.7 % (11.5-14.0); SEGMENTED NEUTROPHILS % (AUTO) 76.8 % (42-78); TOTAL CELLS COUNTED % (AUTO) 100 %; WHITE BLOOD COUNT 8.7 10^3/uL (4.0-10.5)
[2020-04-14 18:03] LABS: ALBUMIN 3.3 g/dL (3.5-5.0); ALKALINE PHOSPHATASE 126 U/L (38-126); ANION GAP 10 (5-19); ASPARTATE AMINO TRANSFERASE 24 U/L (14-36); BILIRUBIN,DIRECT 0.3 mg/dL (0.0-0.4); BILIRUBIN,TOTAL 0.4 mg/dL (0.2-1.3); BLOOD UREA NITROGEN 5 mg/dL (7-20); CALCIUM 8.9 mg/dL (8.4-10.2); CARBON DIOXIDE 22 mmol/L (22-30); CHLORIDE 102 mmol/L (98-107); GLUCOSE 77 mg/dL (75-110); POTASSIUM 3.8 mmol/L (3.6-5.0); URIC ACID 4.2 mg/dL (2.5-7.0)
[2020-04-14 18:27] LABS: URINE AMPHETAMINES SCREEN NEGATIVE; URINE BARBITURATES SCREEN NEGATIVE; URINE BENZODIAZEPINES SCREEN NEGATIVE; URINE COCAINE SCREEN NEGATIVE; URINE METHADONE SCREEN NEGATIVE; URINE PHENCYCLIDINE SCREEN NEGATIVE
[2020-04-14 18:36] LABS: URINE MARIJUANA (THC) SCREEN UNCONFIRMED POSITIVE
--- NOTE | 2020-04-14 19:12 | Non Stress Test Report ---
Non Stress Test Datetime Report Generated by CPN: 04/14/2020 19:12 DEMOGRAPHIC Test Number: 2 EGA NST: 34.4 VITAL SIGNS Temperature - NST: 98.1 Pulse - NST: 100 RESP - NST: 18 NBPSYS NST: 125 NBPDIA NST: 70 MONITORING Monitor Explained: Monitor Explained; Test Explained; Patient Verbalized Understanding Time on Monitor: 04/14/2020 18:25 Time off Monitor: 04/14/2020 18:45 NST Duration: 20 NST INTERVENTIONS NST Interventions: PO Hydration; Reposition Patient Physician Notified NST: Andrea,CNM BABY A: [id number] BABY A Movement : Present Contraction Frequency : irreg FHR Baseline : 135 Accelerations : 15X15 Decelerations : None Variability : Moderate 6-25bpm NST Review: Meets Criteria for Reactive NST NST Review and Verified By : NAKIA Bangura Results: Reactive NST REPORT Report Trigger: Send Report
[2020-04-14 22:05] LABS: URINE CREATININE 169.4 mg/dL (16-327); URINE PROTEIN 7.8 mg/dL (<12)
== END 2020-04-14 19:06 | disposition home or self-care (01) ==
LOC: EDBD → LC 15:05
PROVIDERS: ATTEND Obstetrics & Gynecology
DX: O16.3 Unspecified maternal hypertension, third trimester (principal); Z3A.34 34 weeks gestation of pregnancy
CPT/HCPCS: 36415; 59025; 80053; 80307; 81001; 82570; 82962; 83615; 84156; 84550; 85025

== ENCOUNTER 2020-05-05 02:50 | Inpatient (IN) | payer MEDICAID ==
[2020-05-05] MEDS ORDERED: MISOPROSTOL 0.2 MG TABLET ONE (03:08)
[2020-05-05] MEDS ORDERED: OXYTOCIN/0.9 % SODIUM CHLORIDE 30 UNIT/500 ML RTUINJ ONE (03:08)
[2020-05-05] MEDS ORDERED: OXYTOCIN 10 UNIT/ML VIAL ONE (03:08)
[2020-05-05] MEDS ORDERED: LIDOCAINE 1% INJ-PF (10 MG/ML) 30 ML SDV ONE (03:08)
[2020-05-05] MEDS ORDERED: RINGERS SOLUTION,LACTATED 1,000 ML IV PRN (03:11)
[2020-05-05] MEDS ORDERED: PENICILLIN G-K 5 MILLION UNIT VIAL ONE (03:13)
[2020-05-05 03:42] LABS: ABSOLUTE BASOPHILS # (AUTO) 0.1 10^3/uL (0.0-0.2); ABSOLUTE EOSINOPHILS # (AUTO) 0.1 10^3/uL (0.0-0.6); ABSOLUTE LYMPHOCYTES (AUTO) 1.3 10^3/uL (0.5-4.7); ABSOLUTE MONOCYTES (AUTO) 0.6 10^3/uL (0.1-1.4); ABSOLUTE NEUT (AUTO) 9.5 10^3/uL (1.7-8.2); BASOPHILS % (AUTO) 0.5 % (0-2); EOSINOPHILS % (AUTO) 0.8 % (0-6); HEMATOCRIT 37.7 % (36.0-47.0); HEMOGLOBIN 13.2 g/dL (12.0-15.5); LYMPHOCYTES % (AUTO) 11.6 % (13-45); MEAN CORPUSCULAR HEMOGLOBIN 31.3 pg (27.0-33.4); MEAN CORPUSCULAR HGB CONC 35.1 g/dL (32.0-36.0); MEAN CORPUSCULAR VOLUME 89 fl (80-97); MONOCYTES % (AUTO) 5.1 % (3-13); PLATELET COUNT 303 10^3/uL (150-450); RED BLOOD COUNT 4.23 10^6/uL (3.72-5.28); RED CELL DISTRIBUTION WIDTH 13.8 % (11.5-14.0); TOTAL CELLS COUNTED % (AUTO) 100 %; WHITE BLOOD COUNT 11.6 10^3/uL (4.0-10.5)
[2020-05-05] MEDS ORDERED: EPHEDRINE SULFATE INJ 50 MG/1 ML AMPULE ONE (03:50)
[2020-05-05] MEDS ORDERED: ROPIVACAINE HCL 0.2% INJ/PF (2 MG/ML) 20 ML SDV ONE (03:51)
[2020-05-05] MEDS ORDERED: FENTANYL/BUPIVACAINE/NS/PF 300 MCG/150 ML RTUINJ EPI ONE (03:51)
--- NOTE | 2020-05-05 03:58 | Admission Physical ---
Datetime Report Generated by CPN: 05/05/2020 03:58 CURRENT ADMISSION Chief Complaint: Uterine Contractions Indication for Induction: Not Applicable Admit Impression : Term, Intrauterine ; Active Labor Admit Plan: Admit to Unit ALLERGIES Medication Allergies: No Medication Allergies: No Known Allergies (04/14/2020) Latex: No Latex Allergies OBSTETRICAL HISTORY EDC: 05/22/2020 00:00 : 6 Para: 3 Term: 3 : 0 SAB: 2 IAB: 0 Ectopic: 0 Livin Cesareans: 0 VBACs: 0 Multiple Births: 0 Gestational Diabetes: Yes Rh Sensitization: No Incompetent Cervix: No KARLOS: No Infertility: No ART Treatment: No Uterine Anomaly: No IUGR: No Hx Previous C/S: No Macrosomia: No Hx Loss/Stillborn: No PIH: Yes Hx : No Placenta Previa/Abruption: No Depression/PP Depression: Yes PTL/PROM: No Post Hemorrhage: No Current Procedures: Ultrasound; NST; BPP Obstetrical History Comments: G1: 2008, 39 wks, 7lb 15 oz male, vag G2: 2012, 39 wks, 9lbs 6 oz, male, vag G3: 2013, 39 wks, 9lbs, male, vag G4: 2017 SAB G5: 2018, SAB G6: current SEE RECORDS Alcohol: No Marijuana : No Cocaine: No Other Illicit Drugs: No Cigarettes: Current Some Day Smoker. [id number] Cigarette Frequency: < 5 per day Advised to Stop: Yes MEDICAL HISTORY Diabetes: No Blood Transfusion: Yes Pulmonary Disease (Asthma, TB): No Breast Disease: No Hypertension: Yes Fusion Analyst Surgery: No Heart Disease: No Hosp/Surgery: Yes Autoimmune Disorder: No Anesthetic Complications: No Kidney Disease: No Abnormal Pap Smear: No Neuro/Epilepsy: No Psychiatric Disorders: No Other Medical Diseases: No Hepatitis/Liver Disease: No Significant Family History: No Varicosities/Phlebitis: No Trauma/Violence : No Thyroid Dysfunction: No Medical History Comments: obesity, childbirth x3, blood transfusion 2018, hemorrhoid banding, depression, anxiety, HTN, spinal leakage w/ epidurals INFECTIOUS HISTORY Gonorrhea: No Genital Herpes: No Chlamydia: No Tuberculosis: No Syphilis: No Hepatitis: No HIV/AIDS Exposure: No Rash or Viral Illness: No HPV: No PHYSICAL EXAM General: Normal HEENT: Normal Neurologic: Normal Thyroid: Normal Heart: Normal Lungs: Normal Breast: Deferred Back: Normal Abdomen: Normal Genitourinary Exam: Normal Extremities: Normal DTRs: Normal Pelvic Type: Adequate Vital Signs: Reviewed VAGINAL EXAM Dilatation: 9 Effacement: 100 Station: 0 MEMBRANES Pooling: Positive Membranes: Ruptured FETUS A EGA: 37.4 Monitoring: External US FHR- Baseline: 140 Variability: Moderate 6-25bpm Decelerations: None FHR Category: Category I Presentation: Vertex Admit Comment: efw 8-9 lbs PLANS FOR LABOR AND DELIVERY Labor and Delivery: None Pain Management: Epidural Feeding Preference: Breast Benefit of Breast Feed Discussed: Yes Circumcision: Yes INFORMED CONSENT Signature: with User ID: [email or web address]
[2020-05-05] MEDS ORDERED: PENICILLIN G POTASSIUM 5,000,000 UNIT in DEXTROSE 5%-WATER 100 ML IV ONE (04:00)
[2020-05-05 05:09] LABS: APPEARANCE,URINE CLEAR; BILIRUBIN,URINE NEGATIVE (NEGATIVE); COLOR,URINE YELLOW; GLUCOSE, URINE NEGATIVE (NEGATIVE); KETONES,URINE 20 mg/dL (NEGATIVE); LEUKOCYTE ESTERASE,URINE NEGATIVE (NEGATIVE); NITRITE,URINE NEGATIVE (NEGATIVE); PROTEIN,URINE 30 mg/dL (NEGATIVE); URINE SPECIFIC GRAVITY 1.021; UROBILINOGEN,URINE NEGATIVE mg/dL (<2.0)
[2020-05-05 05:25] LABS: URINE AMPHETAMINES SCREEN NEGATIVE; URINE BARBITURATES SCREEN NEGATIVE; URINE BENZODIAZEPINES SCREEN NEGATIVE; URINE COCAINE SCREEN NEGATIVE; URINE METHADONE SCREEN NEGATIVE; URINE PHENCYCLIDINE SCREEN NEGATIVE
[2020-05-05] MEDS ORDERED: HYDRALAZINE HCL INJ/PF 20 MG/1 ML SDV ONE (05:25)
[2020-05-05 05:31] LABS: URINE MARIJUANA (THC) SCREEN UNCONFIRMED POSITIVE
[2020-05-05] MEDS ORDERED: HYDRALAZINE HCL INJ/PF 20 MG/1 ML SDV IV ONE ×2 (05:38→05:53)
[2020-05-05] MEDS ORDERED: LABETALOL HCL INJ 20 MG/4 ML DISP.SYRIN IV ONE ×4 (06:04→13:25)
[2020-05-05] MEDS ORDERED: ROPIVACAINE HCL 0.5% INJ/PF (5 MG/1 ML) 30 ML SDV ONE (07:18)
[2020-05-05] MEDS: PENICILLIN G POTASSIUM 2,500,000 UNIT in DEXTROSE 5%-WATER 50 ML IV SCH ×3 (07:36→15:40)
[2020-05-05] MEDS ORDERED: ONDANSETRON HCL INJ/PF 4 MG/2 ML SDV IV ONE ×2 (07:50→13:34)
[2020-05-05] MEDS ORDERED: ONDANSETRON HCL INJ/PF 4 MG/2 ML SDV ONE ×2 (07:51→13:31)
[2020-05-05] MEDS ORDERED: OXYTOCIN/0.9 % SODIUM CHLORIDE 30 UNIT/500 ML RTUINJ IV PRN ×2 (08:49→12:19)
[2020-05-05] MEDS ORDERED: NORMAL SALINE 250 ML IV PRN ×2 (09:47)
[2020-05-05] MEDS ORDERED: DIPHENHYDRAMINE HCL 25 MG CAPSULE PO PRN (12:19)
[2020-05-05] MEDS ORDERED: DIBUCAINE 1% OINTMENT 28 GM TP PRN (12:19)
[2020-05-05] MEDS ORDERED: DIPH/PERTUSS(ACELL)/TETANUS VAC/PF 0.5 ML SYR (>=10YO) IM PRN (12:19)
[2020-05-05] MEDS ORDERED: ACETAMINOPHEN WITH CODEINE #3 TABLET PO PRN (12:19)
[2020-05-05] MEDS ORDERED: BENZOCAINE/MENTHOL AEROSOL SPRAY 56 ML TOP PRN (12:19)
[2020-05-05] MEDS ORDERED: PSEUDOEPHEDRINE HCL 30 MG TABLET PO PRN (12:19)
[2020-05-05] MEDS ORDERED: ZOLPIDEM TARTRATE 5 MG TABLET PO PRN (12:19)
[2020-05-05] MEDS ORDERED: NA PHOS,M-B/NA PHOS,DI-BA (ADULT) 133 ML ENEMA PR PRN (12:19)
[2020-05-05] MEDS ORDERED: ACETAMINOPHEN 650 MG SUPP.RECT PR PRN (12:19)
[2020-05-05] MEDS ORDERED: MEASLES,MUMPS&RUBELLA VACC/PF 0.5 ML VIAL SUBCUT PRN (12:19)
[2020-05-05] MEDS ORDERED: MAGNESIUM HYDROXIDE SUSP 30 ML UDCUP PO PRN (12:19)
[2020-05-05] MEDS ORDERED: PROMETHAZINE HCL 25 MG SUPP.RECT PR PRN (12:19)
[2020-05-05] MEDS ORDERED: PROMETHAZINE HCL INJ 25 MG/1 ML VIAL IV PRN (12:19)
[2020-05-05] MEDS ORDERED: IBUPROFEN 800 MG TABLET ONE (12:50)
[2020-05-05] MEDS ORDERED: ACETAMINOPHEN WITH CODEINE #3 TABLET ONE (13:24)
--- NOTE | 2020-05-05 13:24 | Birth Certificate Data ---
Cert Data Datetime Report Generated by CPN: 05/05/2020 13:24 CERTIFICATE DATA Delivery Provider: Richard Goldberg MD (03/30/2020 09:54:Amy Morales RN) 47b. Date of First Visit: 10/25/2019 00:00 (03/30/2020 09:54:Cyndy Terry RN) 48a. Number of Prev Live Births: 3 (03/30/2020 09:54:Cyndy Terry RN) 48b. Now Livin (03/30/2020 09:54:Cyndy Terry RN) 48c. Live Births Now : 0 (03/30/2020 09:54:QS system process) 48d. Date of Last Live : 05/01/2014 00:00 (03/30/2020 09:54:Cyndy Terry RN) 48e. Losses: 3 (03/30/2020 09:54:Cyndy Terry RN) 48f. Date of Last Preg Loss: 06/22/2019 00:00 (03/30/2020 09:54:Cyndy Terry RN) RISK FACTORS IN THIS 49a. Diabetes: No (03/30/2020 09:54:Kellie King RN) 49b. Hypertension: Yes (03/30/2020 09:54:Cyndy Terry RN) Type of Hypertension: Chronic (03/30/2020 09:54:Cyndy Terry RN) 49c. Previous Births: 0 (03/30/2020 09:54:Cyndy Terry RN) 49d. Stillborns: No (03/30/2020 09:54:Kellie King RN) 49d. IUGR: No (03/30/2020 09:54:Kellie King RN) 49e. Infertility Treatment: No (03/30/2020 09:54:Kellie King RN) 49f. Previous Cesareans: 0 (03/30/2020 09:54:Cyndy Terry RN) Mother's Height 50b. Height Inches: 64 (05/05/2020 05:30:QS system process) Mother's Weight 51a. Pre- Weight (lbs): 279 (03/30/2020 09:54:Cyndy Terry RN) 51b. Weight at Delivery (lbs): 279 (05/05/2020 05:30:QS system process) 52. Dt Last Normal Menses Began: 08/07/2019 00:00 (03/30/2020 09:54:Cyndy Terry RN) Infections Present/Treated 53a. Gonorrhea: No (03/30/2020 09:54:Kellie King RN) 53b. Syphilis: No (03/30/2020 09:54:Kellie King RN) Results this Hospital Visit: NONREACTIVE (05/05/2020 03:28:QS system process) 53c. Chlamydia: No (03/30/2020 09:54:Kellie King RN) 53d. Hepatitis B: No (03/30/2020 09:54:Kellie King RN) Results this Hospital Visit: Negative (03/30/2020 09:54:Cyndy Terry RN) 53e. Hepatitis C: Negative (03/30/2020 09:54:BRAIN Dempsey) 53h. Mother Tested for HBsAG: Yes (03/30/2020 09:54:BRAIN Dempsey) 53i. Date Tested: 10/25/2019 00:00 (03/30/2020 09:54:Cyndy Terry RN) 53j. Test Result: Negative (03/30/2020 09:54:Cyndy Terry RN) Obstetric Procedures 54a, b, c. Obstetric Procedures: Ultrasound; NST; BPP (03/30/2020 09:54:Kellie King RN) Cigarette Smoking Cigarette Smoking: Current Some Day Smoker. [id number] (03/30/2020 09:54:Kellie King RN) 55a. 3 Months Before Preg - Ci (03/30/2020 09:54:Kellie King RN) 55b. 1st Trimester of Preg- Ci (03/30/2020 09:54:Kellie King RN) 55c. 2nd Trimester of Preg- Ci (03/30/2020 09:54:Kellie King RN) 55d. 3rd Trimester of Preg- Ci (03/30/2020 09:54:Kellie King RN) Onset of Labor 56a. PROM >12 Hrs: 8.27 (05/05/2020 03:50:QS system process) 56b. Precipitous Labor <3 Hrs: 12 (03/30/2020 09:54:QS system process) 56c. Prolonged Labor > 20 Hrs: 12 (03/30/2020 09:54:QS system process) 57a. Induction of Labor: Augmentation (03/30/2020 09:54:Marlene Evans RN) 57c. Non-Vertex Presentation A: Vertex (03/30/2020 09:54:Kellie King RN) 57d. Steroids - Lung Mat: None (03/30/2020 09:54:BRAIN Dempsey) 57d. Steroids - Lung Mat: Not Applicable (03/30/2020 09:54:BRAIN Dempsey) 57e. Antibiotics During Labor: 05/05/2020 07:36 (03/30/2020 09:54:Marlene Evans RN) 57f. Mat [place] or Temp >100.4: 98.5 (03/30/2020 09:54:Kellie King RN) 57g. Moderate/Heavy Meconium: Clear (05/05/2020 03:50:Kellie King RN) 57h. Intolerance of Labor: N/A (03/30/2020 09:54:Kellie King RN) : N/A (03/30/2020 09:54:Kellie King RN) 57i. Epidural/Spinal Anesthesia: Epidural (03/30/2020 09:54:Kellie King RN) Method of Delivery 58a. Forceps - Unsuccessful A: N/A (03/30/2020 09:54:Kellie King RN) 58b. Vacuum - Unsuccessful A: N/A (03/30/2020 09:54:Richard Goldberg MD ([facility])) 58c. Presentation at 58c. Presentation at - A : Vertex (03/30/2020 09:54:Kellie King RN) 58c. Presentation at - A : N/A (03/30/2020 09:54:Kellie King RN) 58c. Presentation at - A : Cephalic (03/30/2020 09:54:Kellie King RN) Final Route and Method of Del 58d. Baby A Route/Delivery: Vaginal (05/05/2020 12:06:Kellie King RN) 58e. Trial of Labor Attempted: No (03/30/2020 09:54:Kellie King RN) 58e. Trial of Labor Attempted A: N/A (03/30/2020 09:54:Kellie King RN) 58e. Trial of Labor Attempted B: N/A (03/30/2020 09:54:Kellie King RN) Maternal Morbidity 59b. 3rd or 4th Degree Lacs: Perineal (03/30/2020 09:54:Richard Goldberg MD ([facility])) 59b. 3rd or 4th Degree Lacs: First Degree (03/30/2020 09:54:Kellie King RN) Birthweight Baby A: 4368 (03/30/2020 09:54:Rani Marian, RN) 60a. Pounds : 9 (03/30/2020 09:54:QS system process) 60b. Ounces: 10 (03/30/2020 09:54:QS system process) 61. GA at Delivery Baby A: 37.7 (03/30/2020 09:54:Kellie Sales, RN) : Early Term- 37- 38.6 Weeks (03/30/2020 09:54:QS system process) 62a. 5 Minute Baby A: 6 (03/30/2020 09:54:QS system process) 62b. 10 Minute Baby A: 8 (03/30/2020 09:54:QS system process)
--- NOTE | 2020-05-05 13:24 | Delivery Summary ---
Del Sum A-C Datetime Report Generated by CPN: 05/05/2020 13:24 DELIVERY PERSONNEL DELIVERY PERSONNEL: [id number] Delivery Doctor:: Richard Goldberg MD Nurse Planer Operator / Grader Certified:: Maria Antonia Barnes CNM Labor and Delivery Nurse:: Kellie King RNpipe layer helper Nurse:: Amy Morales RN Nursery Nurse:: Rani Fonseca RN Single Fold Machine Operator/CIRCULAR KNITTER HELPER: Alejandra Ybarra CNA II MATERNAL INFORMATION Delivery Anesthesia: Epidural Medications After Delivery: Pitocin 30 Units in 500ml NS/D5W Delivery QBL: 100 Maternal Complications: Other Complication Details: pos GBS LABOR SUMMARY EDC: 05/22/2020 00:00 No. Babies in Womb: 1 Attempted: No Labor Anesthesia: Epidural LABOR INFORMATION Reason for Induction: Not Applicable Onset of Labor: 05/05/2020 00:00 Complete Dilatation: 05/05/2020 08:20 Oxytocin: Augmentation Group B Beta Strep: Positive Antibiotics # of Doses: 2 Antibiotics Time of Last Dose: 05/05/2020 07:36 Name of Antibiotic Given: penicillin Steroids Given: None Reason Steroids Not Administered: Not Applicable MEMBRANES Membranes Rupture Method: Spontaneous Rupture of Membranes: 05/05/2020 03:50 Length of Rupture (hr): 8.27 Amniotic Fluid Color: Clear Amniotic Fluid Amount: Moderate Amniotic Fluid Odor: Normal STAGES OF LABOR Stage 1 hr: 8 Stage 1 min: 20 Stage 2 hr: 3 Stage 2 min: 46 Stage 3 hr: 0 Stage 3 min: 7 Total Time in Labor hr: 12 Total Time in Labor min: 13 VAGINAL DELIVERY Episiotomy: None Laceration #1: Perineal Laceration Extension #1: First Degree Laceration Repair: Yes Sharps Count Correct: Yes CSECTION DELIVERY Primary Indication: N/A Secondary Indication: N/A BABY A INFORMATION Infant Delivery Date/Time: 05/05/2020 12:06 Method of Delivery: Vaginal Nurse Controlled Delivery: No Born in Route : No : N/A Forceps: N/A Vacuum Extraction: N/A Shoulder Dystocia : No ASSISTED DELIVERY BABY A Indication for Assisted Delivery: Malposition, ROP Catheter Prior to Procedure: Yes Station Vacuum/Forcep Apply: outlet Position Vacuum/Forcep Apply: Right Occipital Posterior Vacuum Number of Pulls: 3 Vacuum Number of PopOffs: 2 Vacuum Maximum Pressure Obtained: within recommended range Reduce Pressure btwn Ctx: Yes Total Time Vacuum Applied: 55 seconds PRESENTATION/POSITION BABY A Presentation: Cephalic Cephalic Presentation: Vertex Vertex Position: Right Occipital Posterior Breech Presentation: N/A PLACENTA INFORMATION BABY A Placenta Delivery Time : 05/05/2020 12:13 Placenta Method of Delivery: Spontaneous Placenta Status: Delivered SCORES BABY A Heart Rate 1 min: >100 bpm Resp Effort 1 min: Absent Reflex Irritability 1 min: Grimace Muscle Tone 1 min: Flaccid Color 1 min: Blue/Pale Resuscitation Effort 1 min: Tactile Stimulation; Oxygen SCORE 1 MIN: 3 Heart Rate 5 min: >100 bpm Resp Effort 5 min: Slow, Irregular Reflex Irritability 5 min: Grimace Muscle Tone 5 min: Some Flexion of Extremities Color 5 min: Body [place], Extremities Blue Resuscitation Effort 5 min: Tactile Stimulation; Oxygen; PPV/NCPAP SCORE 5 MIN: 6 Heart Rate 10 min: >100 bpm Resp Effort 10 min: Good Cry Reflex Irritability 10 min: Cough or Sneeze or Pulls Away Muscle Tone 10 min: Some Flexion of Extremities Color 10 min: Body [place], Extremities Blue SCORE 10 MIN: 8 INFANT INFORMATION BABY A Gestational Age at Delivery: 37.7 Gestational Status: Early Term- 37- 38.6 Weeks Outcome : Liveborn Condition : Stable Infant Sex: Male IDENTIFICATION BABY A Verification Date/Time: 05/05/2020 12:18 ID Band Number: [id number] Mother's Name Verified: Yes Infant RN Verifying : Stan Evans RN; Sridhar Wesley RN WEIGHT/LENGTH BABY A Birthweight (gm): 4368 Infant Weight (lb): 9 Infant Weight (oz): 10 Length (in): 22.00 Length (cm): 55.88 CORD INFORMATION BABY A No. Cord Vessels: 3 Nuchal Cord : N/A Cord Blood Taken: Yes-For Eval (Mom's Blood Type - or O+) Suction: Mouth ASSESSMENT BABY A Respirations: Grunting Skin to Skin: No BABY B INFORMATION : N/A SIGNATURES Signature: with User ID: [email or web address]
[2020-05-05] MEDS ORDERED: LABETALOL HCL 200 MG TABLET ONE (13:25)
[2020-05-05] MEDS: LABETALOL HCL 200 MG TABLET PO SCH ×2 (13:42→21:14)
[2020-05-05] MEDS: IBUPROFEN 800 MG TABLET PO SCH ×2 (15:16→21:14)
[2020-05-05] MEDS: PROMETHAZINE HCL 25 MG TABLET PO PRN (16:36)
[2020-05-05] MEDS: ACETAMINOPHEN WITH CODEINE #3 TABLET PO PRN (16:36)
[2020-05-05] MEDS: FERROUS SULFATE 325 MG TABLET PO SCH (17:44)
[2020-05-05] MEDS: DOCUSATE SODIUM 100 MG CAPSULE PO SCH (17:44)
[2020-05-05] MEDS: FAMOTIDINE 20 MG TABLET PO SCH (21:13)
[2020-05-05] MEDS: VENLAFAXINE HCL 75 MG CAP.SR.24H PO SCH (21:13)
[2020-05-06] MEDS: ACETAMINOPHEN WITH CODEINE #3 TABLET PO PRN (03:21)
[2020-05-06] MEDS: PROMETHAZINE HCL 25 MG TABLET PO PRN (03:22)
[2020-05-06 07:38] LABS: HEMATOCRIT 34.7 % (36.0-47.0); HEMOGLOBIN 12.1 g/dL (12.0-15.5); MEAN CORPUSCULAR HEMOGLOBIN 31.2 pg (27.0-33.4); MEAN CORPUSCULAR HGB CONC 34.7 g/dL (32.0-36.0); MEAN CORPUSCULAR VOLUME 90 fl (80-97); PLATELET COUNT 303 10^3/uL (150-450); RED BLOOD COUNT 3.87 10^6/uL (3.72-5.28); RED CELL DISTRIBUTION WIDTH 14.1 % (11.5-14.0); WHITE BLOOD COUNT 11.6 10^3/uL (4.0-10.5)
[2020-05-06] MEDS: IBUPROFEN 800 MG TABLET PO SCH ×3 (08:37→17:16)
[2020-05-06] MEDS: DOCUSATE SODIUM 100 MG CAPSULE PO SCH ×2 (09:45→17:16)
[2020-05-06] MEDS: SENNOSIDES/DOCUSATE 8.6-50 MG 1 EACH TABLET PO SCH (09:45)
[2020-05-06] MEDS: PRENATAL VITAMIN W DHA CAPSULE PO SCH (09:45)
[2020-05-06] MEDS: FAMOTIDINE 20 MG TABLET PO SCH ×2 (09:45→21:09)
[2020-05-06] MEDS: LABETALOL HCL 200 MG TABLET PO SCH ×2 (09:47→21:10)
--- NOTE | 2020-05-06 10:13 | PDOC PROGRESS REPORT ---
Subjective-OB Progress Note for:: 05/06/20 Subjective: Pt doing well, no concerns. She report light bleeding, reg diet and voiding w/o difficulty. Physical Exam (OB) Vital Signs: Temp Pulse Resp BP Pulse Ox 97.7 F 95 17 142/85 H 100 05/06/20 09:59 05/06/20 07:31 05/06/20 07:31 05/06/20 07:31 05/06/20 07:31 Intake & Output 05/05/20 05/06/20 05/07/20 06:59 06:59 06:59 Intake Total 1400 400 Output Total 800 Balance 600 400 Weight 127.006 kg - PIH/Pre-Eclampsia Clonus: Negative Headache: Absent Epigastric Pain: No Visual Changes: No - Maternal Morbidity 59. Maternal Morbidity (serious complications experinced by the mother associated with labor and delivery: None of the above - Lochia Lochia Amount: Small 10-25 ml Lochia Color: Rubra/Red - Abdomen Description: Firm Hernia Present: No Fundal Description: Firm Fundal Height: u/u - u/2 Objective-Diagnostic Laboratory: 05/06/20 06:53 05/05/20 05/06/20 05/06/20 03:28 06:53 08:00 WBC 11.6 H RBC 3.87 Hgb 12.1 Hct 34.7 L MCV 90 MCH 31.2 MCHC 34.7 RDW 14.1 H Plt Count 303 Blood Type O NEGATIVE O NEGATIVE Antibody Screen POSITIVE Assessment and Plan(PN) - Assessment and Plan (1) Vacuum extraction, delivered, current hospitalization Is this a current diagnosis for this admission?: Yes (2) Gastroesophageal reflux disease Qualifiers: Esophagitis bleeding: without hemorrhage Is this a current diagnosis for this admission?: Yes (3) Hemorrhoids Qualifiers: Hemorrhoid type: unspecified Qualified Code(s): K64.9 - Unspecified he morrhoids Is this a current diagnosis for this admission?: Yes (4) Iron deficiency anemia Qualifiers: Iron deficiency anemia type: other iron deficiency Qualified Code(s): D50.8 - Other iron deficiency anemias Is this a current diagnosis for this admission?: Yes (5) Morbid obesity with BMI of 40.0-44.9, adult Is this a current diagnosis for this admission?: Yes - Time Spent with Patient Time with patient: Less than 15 minutes Medications reviewed and adjusted accordingly: Yes - Disposition Anticipated Discharge Disposition: Home, Self Care Anticipated Discharge Timeframe: within 24 hours
[2020-05-06] MEDS: FERROUS SULFATE 325 MG TABLET PO SCH ×2 (12:43→17:16)
[2020-05-06] MEDS: VENLAFAXINE HCL 75 MG CAP.SR.24H PO SCH (21:09)
[2020-05-06] MEDS: GLYCERIN/WITCH HAZEL LEAF 1 EACH MED..WIPE TP PRN (21:09)
[2020-05-07] MEDS: IBUPROFEN 800 MG TABLET PO SCH ×2 (01:53→09:14)
[2020-05-07] MEDS: ACETAMINOPHEN WITH CODEINE #3 TABLET PO PRN (04:56)
[2020-05-07] MEDS: GLYCERIN/WITCH HAZEL LEAF 1 EACH MED..WIPE TP PRN (09:12)
[2020-05-07] MEDS: LABETALOL HCL 200 MG TABLET PO SCH (09:13)
[2020-05-07] MEDS: FERROUS SULFATE 325 MG TABLET PO SCH (09:13)
[2020-05-07] MEDS: DOCUSATE SODIUM 100 MG CAPSULE PO SCH (09:13)
[2020-05-07] MEDS: FAMOTIDINE 20 MG TABLET PO SCH (09:14)
[2020-05-07] MEDS: SENNOSIDES/DOCUSATE 8.6-50 MG 1 EACH TABLET PO SCH (09:14)
[2020-05-07] MEDS: PRENATAL VITAMIN W DHA CAPSULE PO SCH (09:14)
--- NOTE | 2020-05-07 12:12 | PDOC DISCHARGE SUMMARY ---
Impression - Admit/DC Date/PCP Admission Date/Primary Care Provider: 05/05/20 03:12 ALEC BACH PA-C Discharge Date: 05/07/20 - Discharge Diagnosis (1) Drug use affecting Is this a current diagnosis for this admission?: Yes (2) History of anxiety Is this a current diagnosis for this admission?: Yes (3) History of depression Is this a current diagnosis for this admission?: Yes (4) Tobacco smoking affecting in third trimester Is this a current diagnosis for this admission?: Yes (5) Vacuum extraction, delivered, current hospitalization Is this a current diagnosis for this admission?: Yes (6) Hemorrhoids Is this a current diagnosis for this admission?: Yes (7) Morbid obesity with BMI of 40.0-44.9, adult Is this a current diagnosis for this admission?: Yes - Assessment Summary: 35yo G6 now P4 s/p ppd 2 stable and ready for discharge. Denies any concerns, only discomfort at this time is hemorrhoids; understands warning s/s. Follow up tuesday for BP check. - Additional Information Discharge Diet: As Tolerated, Regular, Diabetic Discharge Activity: Activity As Tolerated, Balance Activity w/Rest, No Lifting Over 10 Pounds, Pelvic Rest, No tub bath, Walk Frequently Referrals: ALEC BACH PA-C [Primary Care Provider] - Prescriptions: Ibuprofen [Motrin 800 mg Tablet] 800 mg PO Q8HP PRN #20 tablet PRN Reason: For Pain Scale 1-3 Dibucaine 1% Ointment [Nupercainal 1% Oint 28 gm] 1 applic TP Q8HP PRN #1 tube PRN Reason: Hemorrhoids Docusate Sodium [Colace 100 mg Capsule] 100 mg PO BID #60 capsule Labetalol HCl [Normodyne 200 mg Tablet] 100 mg PO Q12 #60 tablet Home Medications: Venlafaxine HCl [Venlafaxine HCl ER] 150 mg PO DAILY 12/14/16 Glyburide/Metformin HCl [Glyburide-Metformin 2.5-500 mg] 1 tab PO DAILY 03/30/20 Vit,Calc76/Iron/Folic [Prenatabs Rx Tablet] 1 tab PO DAILY 03/30/20 Dibucaine 1% Ointment [Nupercainal 1% Oint 28 gm] 1 applic TP Q8HP PRN #1 tube 05/07/20 Docusate Sodium [Colace 100 mg Capsule] 100 mg PO BID #60 capsule 05/07/20 Ibuprofen [Motrin 800 mg Tablet] 800 mg PO Q8HP PRN #20 tablet 05/07/20 Labetalol HCl [Normodyne 200 mg Tablet] 100 mg PO Q12 #60 tablet 05/07/20 Hospital Course 59. Maternal Morbidity (serious complications experinced by the mother associated with labor and delivery: None of the above Results Laboratory Results: WBC 11.6 10^3/uL (4.0-10.5) H 05/06/20 06:53 RBC 3.87 10^6/uL (3.72-5.28) 05/06/20 06:53 Hgb 12.1 g/dL (12.0-15.5) 05/06/20 06:53 Hct 34.7 % (36.0-47.0) L 05/06/20 06:53 MCV 90 fl (80-97) 05/06/20 06:53 MCH 31.2 pg (27.0-33.4) 05/06/20 06:53 MCHC 34.7 g/dL (32.0-36.0) 05/06/20 06:53 RDW 14.1 % (11.5-14.0) H 05/06/20 06:53 Plt Count 303 10^3/uL (150-450) 05/06/20 06:53 Lymph % (Auto) 11.6 % (13-45) L 05/05/20 03:28 [place] % (Auto) 5.1 % (3-13) 05/05/20 03:28 Eos % (Auto) 0.8 % (0-6) 05/05/20 03:28 Baso % (Auto) 0.5 % (0-2) 05/05/20 03:28 Absolute Neuts (auto) 9.5 10^3/uL (1.7-8.2) H 05/05/20 03:28 Absolute Lymphs (auto) 1.3 10^3/uL (0.5-4.7) 05/05/20 03:28 Absolute Monos (auto) 0.6 10^3/uL (0.1-1.4) 05/05/20 03:28 Absolute Eos (auto) 0.1 10^3/uL (0.0-0.6) 05/05/20 03:28 Absolute Basos (auto) 0.1 10^3/uL (0.0-0.2) 05/05/20 03:28 Seg Neutrophils % 82.0 % (42-78) H 05/05/20 03:28 Urine Color YELLOW 05/05/20 04:30 Urine Appearance CLEAR 05/05/20 04:30 Urine pH 5.0 (5.0-9.0) 05/05/20 04:30 Ur Specific [place] 1.021 05/05/20 04:30 Urine Protein 30 mg/dL (NEGATIVE) H 05/05/20 04:30 Urine Glucose (UA) NEGATIVE mg/dL (NEGATIVE) 05/05/20 04:30 Urine Ketones 20 mg/dL (NEGATIVE) H 05/05/20 04:30 Urine Blood NEGATIVE (NEGATIVE) 05/05/20 04:30 Urine Nitrite NEGATIVE (NEGATIVE) 05/05/20 04:30 Urine Bilirubin NEGATIVE (NEGATIVE) 05/05/20 04:30 Urine Urobilinogen NEGATIVE mg/dL (<2.0) 05/05/20 04:30 Ur Leukocyte Esterase NEGATIVE (NEGATIVE) 05/05/20 04:30 Urine Ascorbic Acid NEGATIVE (NEGATIVE) 05/05/20 04:30 Urine Opiates Screen NEGATIVE 05/05/20 04:30 Urine Methadone Screen NEGATIVE 05/05/20 04:30 Ur Barbiturates Screen NEGATIVE 05/05/20 04:30 Ur Phencyclidine Scrn NEGATIVE 05/05/20 04:30 Ur Amphetamines Screen NEGATIVE 05/05/20 04:30 U Benzodiazepines Scrn NEGATIVE 05/05/20 04:30 Urine Cocaine Screen NEGATIVE 05/05/20 04:30 U Marijuana (THC) Screen UNCONFIRMED POSITIVE 05/05/20 04:30 RPR NONREACTIVE (NONREACTIVE) 05/05/20 03:28 Blood Type O NEGATIVE 05/06/20 08:00 Blood Type Confirm O NEGATIVE 05/05/20 03:28 Antibody Screen POSITIVE 05/05/20 03:28 Antibody Identification RHOGAM INDUCED ANTI-D 05/05/20 03:28 Screen NEGATIVE 05/06/20 08:00 Crossmatch See Detail 05/05/20 03:28
[2020-05-07 12:31] VITALS: BP 148/68
== END 2020-05-07 12:56 | disposition home or self-care (01) | DRG 806 ==
LOC: LC 02:50 → LR 03:12 → 2S 14:50
PROVIDERS: ADMIT Obstetrics & Gynecology; ATTEND Obstetrics & Gynecology
PROC: 10D07Z6 Extraction of Products of Conception, Vacuum, Via Natural or Artificial Opening (ICD-10-PCS; principal; 2020-05-05)
PROC: 0HQ9XZZ Repair Perineum Skin, External Approach (ICD-10-PCS; 2020-05-05)
PROC: 3E0234Z Introduction of Serum, Toxoid and Vaccine into Muscle, Percutaneous Approach (ICD-10-PCS; 2020-05-06)
DX: O99.344 Other mental disorders complicating childbirth (principal); O99.324 Drug use complicating childbirth; Z37.0 Single live birth; O22.43 Hemorrhoids in pregnancy, third trimester; O99.334 Smoking (tobacco) complicating childbirth; O64.0XX0 Obstructed labor due to incomplete rotation of fetal head, not applicable or unspecified; F17.210 Nicotine dependence, cigarettes, uncomplicated; O99.824 Streptococcus B carrier state complicating childbirth; O70.0 First degree perineal laceration during delivery; F32.9 Major depressive disorder, single episode, unspecified; O99.214 Obesity complicating childbirth; E66.01 Morbid (severe) obesity due to excess calories; O99.62 Diseases of the digestive system complicating childbirth; K21.9 Gastro-esophageal reflux disease without esophagitis; O99.02 Anemia complicating childbirth; D50.9 Iron deficiency anemia, unspecified; F19.90 Other psychoactive substance use, unspecified, uncomplicated; O26.893 Other specified pregnancy related conditions, third trimester; Z67.41 Type O blood, Rh negative; O24.429 Gestational diabetes mellitus in childbirth, unspecified control; Z3A.37 37 weeks gestation of pregnancy; K20.90 Esophagitis, unspecified without bleeding
CPT/HCPCS: 1967; 36415; 80307; 80349; 81005; 85025; 85027; 85461; 86592; 86850; 86870; 86900; 86901; 86920; 86922; 94760; 99465; G0480; J0360; J2405; J2540; J2590; J2790; J2795; J3010; J3490; J7060